=== PATIENT | female | born 2000 | race Caucasian/White ===

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

== ENCOUNTER 2019-05-24 08:00 | Outpatient (CLI) | payer MEDICAID, OTHER | END 2019-05-24 23:59 | disposition home or self-care (01) | LOC: LAB.R 08:00 | PROVIDERS: ATTEND Family Medicine | DX: R35.0 Frequency of micturition (principal) | CPT/HCPCS: 87077; 87086; 87181 ==

== ENCOUNTER 2019-07-16 01:06 | Outpatient (CLI) | payer OTHER | END 2019-07-16 01:07 | disposition critical access hospital (66) | LOC: EMS 01:06 | PROVIDERS: ATTEND Surgery | DX: T50.992A Poisoning by other drugs, medicaments and biological substances, intentional self-harm, initial encounter (principal); R40.20 Unspecified coma; R09.89 Other specified symptoms and signs involving the circulatory and respiratory systems | CPT/HCPCS: A0425; A0427 ==

== ENCOUNTER 2019-07-16 01:16 | Emergency (ER) | payer OTHER ==
--- NOTE | 2019-07-16 01:34 | ED Physician Documentation ---
PD HPI OVERDOSE - Stated complaint Stated Complaint: OD - Chief complaint Chief Complaint: MHE - History obtained from History obtained from: Patient, EMS - History of Present Illness Timing - onset: Last night Subtance(s) ingested: Single Associated symptoms: Resp depression, Unresponsive Contributing factors: No: Depresssed, Suicidal Pain level now: 0 Treatment INTERVENTIONAL NURSE: Narcan Recently seen: Not recently seen - Additional information Additional information: BIBA. Patient was at friend's house earlier tonight where she took two tablets of 30mg Percocet (per medic report; patient confirms this on my HPI). She tells me she took these for the euphoric effect and has/had no suicidal thoughts or intent. She then went home. Boyfriend subsequently came home and called 911 due to patient being unresponsive. Medics found patient unconscious and with agonal respirations, given Narcan 0.4mg IV and rapidly became AAOx3, remains AAOx3 on arrival to ED. Review of Systems Cardiac: reports: Reviewed and negative Respiratory: reports: Reviewed and negative GI: reports: Reviewed and negative Neurologic: reports: Unresponsive. denies: Headache, Head injury Psychiatric: denies: Depressed, Suicidal PD PAST MEDICAL HISTORY - Past Medical History Past Medical History: No - Past Surgical History Past Surgical History: No - Present Medications Home Medications: Ambulatory Orders Medication Instructions Recorded Confirmed Doxycycline Hyclate 09/25/17 Etonogestrel [Nexplanon] 09/25/17 Ibuprofen 800 mg PO TID 09/25/17 09/25/17 - Allergies Allergies/Adverse Reactions: Allergies Allergy/AdvReac Type Severity Reaction Status Date / Time No Known Drug Allergies Allergy Verified 09/25/17 09:40 - Living Situation Living Arrangement: reports: At home - Social History Does the pt smoke?: Yes Smoking Status: Current every day smoker Does the pt drink ETOH?: Yes Does the pt have substance abuse?: No - Immunizations Immunizations are current?: No PD ED PE NORMAL - Vitals Vital signs reviewed: Yes - General General: Alert and oriented X 3, No acute distress, Well developed/nourished - HEENT HEENT: Atraumatic, PERRL, EOMI, Moist mucous membranes - Cardiac Cardiac: RRR, No murmur - Respiratory Respiratory: No respiratory distress, Clear bilaterally - Abdomen Abdomen: Soft, Non tender - Derm Derm: Normal color, Warm and dry - Neuro Neuro: Alert and oriented X 3, furnace mason 2-12 intact, No motor deficit, No sensory deficit, Normal speech Eye Opening: Spontaneous Motor: Obeys Commands Verbal: Oriented GCS Score: 15 - Psych Psych: Normal mood, Normal affect Results - Vitals Vitals: Vital Signs - 24 hr 07/16/19 07/16/19 07/16/19 01:21 01:29 01:52 Temperature 37.3 C Heart Rate 118 H 115 H 115 H Respiratory 13 17 Rate Blood Pressure 124/82 H 107/69 O2 Saturation 98 99 07/16/19 07/16/19 07/16/19 02:40 03:54 04:37 Temperature Heart Rate 110 H 96 100 Respiratory 17 17 17 Rate Blood Pressure 114/64 105/74 106/61 O2 Saturation 98 98 96 07/16/19 07/16/19 07/16/19 04:40 05:33 06:27 Temperature 36.9 C Heart Rate 105 H 99 97 Respiratory 17 17 Rate Blood Pressure 106/73 99/54 L O2 Saturation 96 98 Oxygen O2 Source Room air - Labs Labs: Laboratory Tests 07/16/19 07/16/19 07/16/19 01:41 01:41 02:30 WBC 23.0 H RBC 4.35 Hgb 14.4 Hct 42.9 MCV 98.6 MCH 33.1 H MCHC 33.6 RDW 12.5 Plt Count 298 MPV 8.5 Neut # (Auto) Not Reportable Lymph # (Auto) Not Reportable [place] # (Auto) Not Reportable Eos # (Auto) Not Reportable Baso # (Auto) Not Reportable Absolute Nucleated RBC Not Reportable Total Counted 100 Band Neuts % (Manual) 4 Abnorm Lymph % (Manual) 0 Nucleated RBC % Not Reportable Neutrophils # (Manual) 17.7 H Lymphocytes # (Manual) 3.9 H Monocytes # (Manual) 1.4 H Eosinophils # (Manual) 0.0 Basophils # (Manual) 0.0 Differential Comment MANUAL DIFFERENTIAL Platelet Estimate NORMAL (130-450,000) RBC Morph Micro Appear NORMAL APPEARANCE Sodium 137 Potassium 3.5 Chloride 103 Carbon Dioxide 22 Anion Gap 12.0 BUN 13 Creatinine 0.8 Estimated GFR (MDRD) 91 Glucose 159 H Calcium 8.7 Total Bilirubin 0.6 AST 59 H ALT 31 Alkaline Phosphatase 76 Total Protein 6.9 Albumin 4.1 Globulin 2.8 Albumin/Globulin Ratio 1.5 Lipase 23 Ur Specific [place] Urine HCG, Qual Salicylates < 6.0 Urine Opiates Screen NEGATIVE Ur Oxycodone Screen NEGATIVE Urine Methadone Screen NEGATIVE Ur Propoxyphene Screen NEGATIVE Acetaminophen < 10 L Ur Barbiturates Screen NEGATIVE Ur Tricyclics Screen NEGATIVE Ur Phencyclidine Scrn NEGATIVE Ur Amphetamine Screen NEGATIVE U Methamphetamines Scrn NEGATIVE U Benzodiazepines Scrn NEGATIVE Urine Cocaine Screen POSITIVE H U Cannabinoids Screen NEGATIVE Ethyl Alcohol < 5.0 07/16/19 07/16/19 02:30 05:48 WBC RBC Hgb Hct MCV MCH MCHC RDW Plt Count MPV Neut # (Auto) Lymph # (Auto) [place] # (Auto) Eos # (Auto) Baso # (Auto) Absolute Nucleated RBC Total Counted Band Neuts % (Manual) Abnorm Lymph % (Manual) Nucleated RBC % Neutrophils # (Manual) Lymphocytes # (Manual) Monocytes # (Manual) Eosinophils # (Manual) Basophils # (Manual) Differential Comment Platelet Estimate RBC Morph Micro Appear Sodium Potassium Chloride Carbon Dioxide Anion Gap BUN Creatinine Estimated GFR (MDRD) Glucose Calcium Total Bilirubin AST ALT Alkaline Phosphatase Total Protein Albumin Globulin Albumin/Globulin Ratio Lipase Ur Specific [place] >=1.030 H Urine HCG, Qual NEGATIVE Salicylates Urine Opiates Screen Ur Oxycodone Screen Urine Methadone Screen Ur Propoxyphene Screen Acetaminophen < 10 L Ur Barbiturates Screen Ur Tricyclics Screen Ur Phencyclidine Scrn Ur Amphetamine Screen U Methamphetamines Scrn U Benzodiazepines Scrn Urine Cocaine Screen U Cannabinoids Screen Ethyl Alcohol PD MEDICAL DECISION MAKING - ED course Complexity details: reviewed results, re-evaluated patient, considered differential, d/w patient ED course: Remained asymptomatic and stable vital signs during ED stay. She was easily awoken to verbal stimulus during entire ED stay. Reevaluated in the morning and repeat acetaminophen level remains undetectable. Departure - Departure Disposition: 01 Home, Self Care Clinical Impression: Medication overdose, Opiate misuse Condition: Good Instructions: ED Overdose Opiate Follow-Up: Mary Houser ARNP [Primary Care Provider] - Discharge Date/Time: 07/16/19 06:34
[2019-07-16 01:48] LABS: BASOPHILS % (AUTO) 0.6 %; EOSINOPHILS % (AUTO) 0.7 %; HGB - HEMOGLOBIN 14.4 g/dL (12.0-16.0); MEAN CORPUSCULAR HEMOGLOBIN 33.1 pg (27.0-31.0); MEAN CORPUSCULAR HGB CONC 33.6 g/dL (32.0-36.0); MEAN CORPUSCULAR VOLUME 98.6 fL (81.0-99.0); MEAN PLATELET VOLUME 8.5 fL (7.9-10.8); MONOCYTES % (AUTO) 7.2 %; NEUTROPHILS % (AUTO) 77.5 %; PLT - PLATELET COUNT 298 10^3/uL (130-450); RED BLOOD COUNT 4.35 10^6/uL (4.20-5.40); RED CELL DISTRIBUTION WIDTH 12.5 % (12.0-15.0)
[2019-07-16 02:02] LABS: ABNORMAL LYMPHS % (MANUAL) 0 %
[2019-07-16 02:03] LABS: ACETAMINOPHEN < 10 ug/mL (10-30); ALBUMIN 4.1 g/dL (3.2-5.5); ALBUMIN/GLOBULIN RATIO 1.5 (1.0-2.2); ALKALINE PHOSPHATASE 76 IU/L (42-121); ALT ALANINE AMINOTRANSFERASE 31 IU/L (10-60); AST ASPARTATE AMINOTRANSFERASE 59 IU/L (10-42); BILIRUBIN,TOTAL 0.6 mg/dL (0.2-1.0); BUN - BLOOD UREA NITROGEN 13 mg/dL (6-20); CALCIUM 8.7 mg/dL (8.5-10.3); CARBON DIOXIDE - CO2 22 mmol/L (21-32); CHLORIDE 103 mmol/L (101-111); CREATININE 0.8 mg/dL (0.4-1.0); GFR - MDRD 91 (>89); GLUCOSE 159 mg/dL (70-100); LIPASE 23 U/L (22-51); SALICYLATE < 6.0 mg/dL; SODIUM 137 mmol/L (135-145); TOTAL PROTEIN 6.9 g/dL (6.7-8.2)
[2019-07-16 02:20] LABS: BAND NEUTROPHILS % (MANUAL) 4 %; DIFFERENTIAL COMMENT MANUAL DIFFERENTIAL; LYMPHOCYTES # (MANUAL) 3.9 10^3/uL (1.5-3.5); LYMPHOCYTES % (MANUAL) 17 %; MONOCYTES # (MANUAL) 1.4 10^3/uL (0.0-1.0); PLATELET ESTIMATE, MANUAL NORMAL (130-450,000) (NORMAL); RBC MORPHOLOGY (MULTIPLE) NORMAL APPEARANCE (NORMAL)
[2019-07-16 02:46] LABS: MUDS CUTOFF CONCENTRATIONS CUTOFF CONC BELOW:
[2019-07-16 02:50] LABS: HCG UR QUAL NEGATIVE
[2019-07-16 02:58] LABS: AMPHETAMINE SCREEN,URINE NEGATIVE (NEGATIVE); BENZODIAZEPINES SCREEN, URINE NEGATIVE (NEGATIVE); COCAINE SCREEN URINE POSITIVE (NEGATIVE); METHADONE SCREEN, URINE NEGATIVE (NEGATIVE); METHAMPHETAMINES SCREEN, URINE NEGATIVE (NEGATIVE); OPIATE SCREEN, URINE NEGATIVE (NEGATIVE); OXYCODONE SCREEN, URINE NEGATIVE (NEGATIVE); PROPOXYPHENE SCREEN, URINE NEGATIVE (NEGATIVE); TRICYCLIC ANTIDEPRESSANT,URINE NEGATIVE (NEGATIVE)
[2019-07-16 06:27] VITALS: BP 99/54
== END 2019-07-16 06:34 | disposition home or self-care (01) ==
LOC: EDUNIT# → ED 01:16
DX: T40.2X2A Poisoning by other opioids, intentional self-harm, initial encounter (principal); R40.20 Unspecified coma; Y92.009 Unspecified place in unspecified non-institutional (private) residence as the place of occurrence of the external cause; F17.200 Nicotine dependence, unspecified, uncomplicated
CPT/HCPCS: 36415; 80053; 80306; 80307; 80320; 80329; 81025; 83690; 85025; 99284

== ENCOUNTER 2020-02-12 08:00 | Outpatient (CLI) | payer BC, OTHER ==
[2020-02-12 16:34] LABS: MUDS CUTOFF CONCENTRATIONS CUTOFF CONC BELOW:
[2020-02-12 17:09] LABS: AMPHETAMINE SCREEN,URINE NEGATIVE (NEGATIVE); BENZODIAZEPINES SCREEN, URINE NEGATIVE (NEGATIVE); COCAINE SCREEN URINE NEGATIVE (NEGATIVE); METHADONE SCREEN, URINE NEGATIVE (NEGATIVE); METHAMPHETAMINES SCREEN, URINE NEGATIVE (NEGATIVE); OPIATE SCREEN, URINE NEGATIVE (NEGATIVE); OXYCODONE SCREEN, URINE NEGATIVE (NEGATIVE); PROPOXYPHENE SCREEN, URINE NEGATIVE (NEGATIVE); TRICYCLIC ANTIDEPRESSANT,URINE NEGATIVE (NEGATIVE)
[2020-02-12 19:33] LABS: TRICHOMONAS VAGINALIS DNA NEGATIVE (NEGATIVE)
== END 2020-02-12 23:59 | disposition home or self-care (01) ==
LOC: LAB.R 08:00
PROVIDERS: ATTEND Obstetrics & Gynecology
DX: Z36.89 Encounter for other specified antenatal screening (principal)
CPT/HCPCS: 80306; 87491; 87591; 87661

== ENCOUNTER 2020-02-19 15:01 | Outpatient (CLI) | payer BC, OTHER ==
--- NOTE | 2020-02-19 17:33 | Ultrasound Report ---
Reason: POSITIVE TEST, DATING Procedure Date: 02/19/2020 Accession Number: [id number] / [id number] Procedure: US - OB First Trimester CPT Code: Addended Final Report FULL RESULT: EXAM: COMPLETE OBSTETRICAL ULTRASOUND EXAM DATE: 02/19/2020 04:25 PM. CLINICAL HISTORY: Positive test. Dating. COMPARISON: None. TECHNIQUE: Real-time sonographic evaluation of the fetus performed by the sales operations coordinator. Multiple sales representative supervisor static images were saved for review. DATING: Established EGA 14 weeks 2 days with ADELA 08/17/2020 based on LMP. EGA 14 weeks 2 days with ADELA 08/17/2020 based on the current ultrasound. GENERAL EVALUATION Vences . Cardiac activity: 173 bpm. movement: Visualized. Presentation: Cephalic. [place]-rump length: 84 mm, 14 weeks 2 days gestational age. Placenta: Posterior position. Placenta previa. Amniotic fluid: Subjectively normal. BIOMETRY Bi-Parietal Diameter (BPD): 2.6 cm, 14 weeks 3 days. Head Circumference (HC): 9.8 cm, 14 weeks 4 days. Abdominal Circumference (AC): 7.9 cm, 14 weeks 2 days. Femur Length (FL): 1.3 cm, 13 weeks 6 days. MATERNAL STRUCTURES Uterus: Unremarkable. Cervix: Long and closed. Transabdominal length 4 cm. Right ovary/adnexa: Unremarkable. Left ovary/adnexa: Unremarkable. Free fluid: None. IMPRESSION: 1. Vences live intrauterine with gestational age 14 weeks 2 days based on crown-rump length. 2. Biometric dating is within expected limits for assigned dating. Note: Suggest complete anatomic survey at 20-22 weeks gestational age. [facility] ADDENDUM: 02/19/20 18:12 3. Posterior placenta previa noted.
== END 2020-02-19 15:02 | disposition home or self-care (01) ==
LOC: DI 15:01
PROVIDERS: ATTEND Nurse Practitioner Obstetrics & Gynecology
DX: Z32.01 Encounter for pregnancy test, result positive (principal)
CPT/HCPCS: 76801

== ENCOUNTER 2020-03-07 08:00 | Outpatient (CLI) | payer BC, OTHER ==
[2020-03-07 13:28] LABS: BASOPHILS # (AUTO) 0.1 10^3/uL (0.0-0.1); BASOPHILS % (AUTO) 0.6 %; EOSINOPHILS # (AUTO) 0.2 10^3/uL (0.0-0.7); EOSINOPHILS % (AUTO) 2.1 %; HGB - HEMOGLOBIN 12.6 g/dL (12.0-16.0); LYMPHOCYTES # (AUTO) 2.1 10^3/uL (1.5-3.5); LYMPHOCYTES % (AUTO) 19.3 %; MEAN CORPUSCULAR HEMOGLOBIN 32.5 pg (27.0-31.0); MEAN CORPUSCULAR HGB CONC 34.7 g/dL (32.0-36.0); MEAN CORPUSCULAR VOLUME 93.6 fL (81.0-99.0); MEAN PLATELET VOLUME 9.4 fL (7.9-10.8); MONOCYTES # (AUTO) 0.8 10^3/uL (0.0-1.0); MONOCYTES % (AUTO) 7.2 %; NEUTROPHILS # (AUTO) 7.5 10^3/uL (1.5-6.6); NEUTROPHILS % (AUTO) 69.9 %; PLT - PLATELET COUNT 338 10^3/uL (130-450); RED BLOOD COUNT 3.88 10^6/uL (4.20-5.40); RED CELL DISTRIBUTION WIDTH 13.1 % (12.0-15.0); WHITE BLOOD COUNT 10.7 x10^3/uL (4.8-10.8)
[2020-03-08 10:24] LABS: HEPATITIS C ANTIBODY NON-REACTIVE (NON-REACTIVE)
[2020-03-08 12:34] LABS: HIV AG/AB 4TH GEN NON-REACTIVE (NON-REACTIVE)
[2020-03-08 15:00] LABS: HEPATITIS B SURFACE ANTIGEN NON-REACTIVE (NON-REACTIVE)
== END 2020-03-07 23:59 | disposition home or self-care (01) ==
LOC: LAB.WCP 08:00
PROVIDERS: ATTEND Obstetrics & Gynecology
DX: Z36.89 Encounter for other specified antenatal screening (principal)
CPT/HCPCS: 36415; 81599; 85025; 86592; 86762; 86803; 86850; 86900; 86901; 87340; 87389

== ENCOUNTER 2020-03-27 14:08 | Outpatient (CLI) | payer BC, MEDICAID ==
--- NOTE | 2020-03-28 15:08 | Ultrasound Report ---
Reason: SUPER OF NORMAL FIRST Procedure Date: 03/27/2020 Accession Number: [id number] / [id number] Procedure: US - OB Detailed Eval CPT Code: Final Report FULL RESULT: EXAM: COMPLETE OBSTETRICAL ULTRASOUND EXAM DATE: 03/27/2020 03:55 PM. CLINICAL HISTORY: anatomic survey. COMPARISON: OB FIRST TRIMESTER 02/19/2020 4:12 PM. TECHNIQUE: Real-time sonographic evaluation of the fetus performed by the ceo and founder. Multiple claims service representative static images were saved for review. DATING: Established EGA 19 weeks 4 days with ADELA 08/17/2020 based on LMP. EGA 19 weeks 4 days with ADELA 08/17/2020 based on prior ultrasound dated 02/19/2020. EGA 18 weeks 5 days with ADELA 08/23/2020 based on the current ultrasound. GENERAL EVALUATION Vences . Cardiac activity: 150 bpm. movement: Visualized. Presentation: Variable. Placenta: Posterior position. Possible low lying placenta with inferior margin less than 2 cm from the internal os on initial images. With further bladder filling, the inferior margin of the placenta appears to be 2.7 cm from the internal loss. Umbilical cord: 3 vessel cord. Central placental cord origin. Amniotic fluid: Subjectively normal. MVP 3.6 cm. VERITO 11.9 cm. BIOMETRY Bi-Parietal Diameter (BPD): 4.3 cm, 19 weeks 0 days. Head Circumference (HC): 16.3 cm, 19 weeks 0 days. Abdominal Circumference (AC): 13.3 cm, 18 weeks 6 days. Femur Length (FL): 2.9 cm, 18 weeks 5 days. Estimated Weight: 260 g, 12 percentile for 19 weeks 4 days. ANATOMY The intracranial structures, profile, face/nose/lips, spine, 4 chamber heart and outflow tracts, stomach, abdominal wall and cord insertion, diaphragm, kidneys, bladder, upper extremities, and portions of the lower extremities were visualized and demonstrate no abnormality. The bilateral leg-foot relationship is not well visualized due to position and early gestational age. The nuchal was not well visualized. MATERNAL STRUCTURES Uterus: Unremarkable. Cervix: Long and closed. Transabdominal length 6.8 cm. Right ovary/adnexa: Unremarkable. Left ovary/adnexa: Unremarkable. Free fluid: None. IMPRESSION: 1. Vences live intrauterine with gestational age 19 weeks 4 days based on LMP. 2. Estimated weight is at the 12th percentile for assigned dating. 3. The bilateral leg-foot relationship was not well visualized due to early gestational age and position. Recommend follow-up limited OB ultrasound to complete anatomic survey. 4. The visualized portions of anatomy are otherwise normal. No anatomic abnormalities are detected at this time. 5. Posterior placenta, possibly low lying. The inferior margin of the placenta appears to be within 2 cm of the internal os on the initial images, although with greater bladder filling the margin appears to be located more than 2 cm from the internal os. Recommend follow-up transvaginal ultrasound at or before 32 weeks to assess for resolution and to exclude vasa previa. [facility]
== END 2020-03-27 14:09 | disposition home or self-care (01) ==
LOC: DI 14:08
PROVIDERS: ATTEND Advanced Practice Midwife
DX: Z34.02 Encounter for supervision of normal first pregnancy, second trimester (principal)
CPT/HCPCS: 76811

== ENCOUNTER 2020-05-27 12:51 | Outpatient (CLI) | payer OTHER, MEDICAID ==
--- NOTE | 2020-05-27 15:42 | Ultrasound Report ---
PROCEDURE: OB F/U or Repeat INDICATIONS: PLACENTA PREVIA, FIRST TRIMESTER OUTSIDE/PRIOR DATING DATA: Last menstrual period (LMP): 11/11/2019. LMP-based estimated date of delivery (ADELA): 08/17/2020. First dating scan (date and location): 02/19/2020. Estimated date of delivery (ADELA) from first dating scan: 08/17/2020. TECHNIQUE: Real-time scanning was performed of the fetus, with image documentation and biometric measurements. Endovaginal scanning: Not performed COMPARISON: OB Ultrasound, 03/27/2020, 02/19/2020. FINDINGS: General: A single living intrauterine gestation is present. Presentation: Vertex Placenta: Placental position is posterior, without previa. The lower margin of placenta is 6.5 cm f rom the internal os. Amniotic fluid index: 13.3 cm, 34.5% for gestational age. heart rate: 132 beats per minute. Maternal cervical canal: closed, measuring 4 cm long; normal length is 2.5 cm or more. biometrics: Not performed. IMPRESSION: 1. A single living intrauterine is redemonstrated. 2. Low-lying placenta is resolved. Placenta is posterior. The lower margin of placenta is 6.5 cm from the internal os. Reviewed by: Marta Glover MD on 05/27/2020 3:41 PM PDT Approved by: Marta Glover MD on 05/27/2020 3:41 PM PDT Station ID: [id number]
== END 2020-05-27 12:52 | disposition home or self-care (01) ==
LOC: DI 12:51
PROVIDERS: ATTEND Advanced Practice Midwife
DX: O44.11 Complete placenta previa with hemorrhage, first trimester (principal); Z3A.00 Weeks of gestation of pregnancy not specified
CPT/HCPCS: 76816

== ENCOUNTER 2020-07-22 08:00 | Outpatient (CLI) | payer OTHER, MEDICAID | END 2020-07-22 23:59 | disposition home or self-care (01) | LOC: LAB.R 08:00 | PROVIDERS: ATTEND Advanced Practice Midwife | DX: Z34.00 Encounter for supervision of normal first pregnancy, unspecified trimester (principal); Z36.85 Encounter for antenatal screening for Streptococcus B | CPT/HCPCS: 81599; 87491; 87591; 87797 ==

== ENCOUNTER 2020-07-31 08:00 | Outpatient (CLI) | payer OTHER, MEDICAID | END 2020-07-31 23:59 | disposition home or self-care (01) | LOC: LAB.R 08:00 | PROVIDERS: ATTEND Nurse Practitioner Obstetrics & Gynecology | DX: Z36.85 Encounter for antenatal screening for Streptococcus B (principal) | CPT/HCPCS: 87797 ==

== ENCOUNTER 2020-08-24 08:06 | Inpatient (IN) | payer OTHER, MEDICAID ==
[2020-08-24] MEDS ORDERED: LIDOCAINE-MPF 1% 30 ML VIAL ID PRN (09:14)
[2020-08-24] MEDS ORDERED: CARBOPROST TROMETHAMINE 250 MCG/ML AMP IM PRN (09:14)
[2020-08-24] MEDS ORDERED: ONDANSETRON 4 MG/2 ML VIAL IVP PRN (09:14)
[2020-08-24] MEDS ORDERED: miSOPROStoL 200 MCG TABLET BC PRN (09:14)
[2020-08-24] MEDS ORDERED: fentaNYL 100 MCG/2 ML VIAL IVP PRN (09:14)
[2020-08-24] MEDS ORDERED: METHYLERGONOVINE 0.2 MG/ML VIAL IM PRN (09:14)
[2020-08-24] MEDS ORDERED: OXYTOCIN/SODIUM CHLORIDE 500 ML IV PRN (09:14)
[2020-08-24] MEDS ORDERED: OXYTOCIN 10 UNIT/ML VIAL IM PRN (09:14)
[2020-08-24] MEDS ORDERED: TRANEXAMIC ACID 1,000 MG in SODIUM CHLORIDE 0.9% 100ML 100 ML IV PRN (09:14)
[2020-08-24] MEDS ORDERED: SODIUM CHLORIDE FLUSH 0.9% 10 ML SYRINGE IVP PRN (09:14)
--- NOTE | 2020-08-24 09:14 | HISTORY & PHYSICAL EXAMINATION ---
Admit History - Visit Reason Visit Reason: Other (Pre-Induction cervical ripening) - : 1 Parity: 0 Premature: 0 Ectopic: 0 : 0 Care: positive: None ([facility]) Risk/History: positive: None Complications This : positive: None Smoking Status: Current every day smoker - Mother's Labs Mother's Blood Type: positive: O Mother's RH: positive: Positive GBS: positive: Group B Step Negative Rubella Status: positive: Immune - Other Maternal History Other Maternal History: -20yo at 41.0wks gestation who presents to Labor and Delivery for pre- induction cervical ripening -Reports movement -Denies ctx/VB/LOF - care with [facility] which has been adequate - Complications *None -Dating Criteria *Initial U/S:14.2wk gestation c/w LMP -OB Hx *G1: current -Medications * vitamin-daily -Allergies *NKDA -Medical History *Depression/Anxiety *Oral cold sores -Surgical History *None -Family History *Non contributory -Social History *Smoking 1/4pk/day *History of opioid drug use prior to . Negative UDS in pnc - Labs, Immunizations, and Findings *Initial U/S:14.2wk gestation c/w LMP. HR 173. Posterior Placenta Previa noted. F/U at 20wk FAS Hx heroin use prior to preg/ UDS neg O pos/Rubella immune Gentic testing: Declines FAS: 03/27 at 19.4wks. EFW 12%. Some anatomy not well visualized. Placenta posterior- possibly low lying within 2cm of os. Recommended follow up at 32weeks or sooner to rule out previa. 3VC. VERITO wnl. F/UFAS: No previa noted. Posterior placenta. VERITO wnl. EFW 16%. 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 FOB Jon. "wait and see". GIRL: Patti. pp contraception: Mirena PAP: will accept -SVE : closed/80%/-1/midposition/moderate -Vertex by Cem's -EFW by cem's- 7# -FHTs as above -Assessment *20yo at 41.0wks gestation who presents for pre-induction cervical r ipening *Dumont Score 7- requires cervical ripening * Heart Tones- Category I, with periods of minimal variability -Plan *Admit to OBS(until active labor, SROM, AROM, epidural, or pitocin) *Cervical ripening with Misoprostol *Monitoring- Continuous *Comfort measures available- position changes, whirlpool tub, fentanyl, and epidural per maternal preference *Diet/Activity- per maternal preference *Anticipate Meds/Allgy - Allergies Allergies/Adverse Reactions: Allergies Allergy/AdvReac Type Severity Reaction Status Date / Time No Known Drug Allergies Allergy Verified 09/25/17 09:40 Review of Systems - Musculoskeletal Musculoskeletal: reports: Back pain - All Other Systems All Other Systems: reports: Reviewed and negative Physical - Abdominal Exam Contraction Frequency (min/apart): none felt Uterine Resting Tone: positive: Soft - Monitoring Heart Rate Baseline: 130 Strip Review: positive: Category I - Vaginal Exam Membranes: positive: Membranes intact Dilation (in cm): clsd Effacement (%): 80 Station: positive: -1 Cervical Position: positive: Midposition Plan for Labor - Plan For Labor I expect patient to be DC'd or transferred within 96 hours.: Yes
[2020-08-24] MEDS: miSOPROStoL 100 MCG TABLET BC SCH ×4 (09:53→19:00)
[2020-08-24 09:54] LABS: BASOPHILS # (AUTO) 0.1 10^3/uL (0.0-0.1); BASOPHILS % (AUTO) 0.4 %; EOSINOPHILS # (AUTO) 0.3 10^3/uL (0.0-0.7); EOSINOPHILS % (AUTO) 2.4 %; HGB - HEMOGLOBIN 13.1 g/dL (12.0-16.0); LYMPHOCYTES # (AUTO) 2.5 10^3/uL (1.5-3.5); LYMPHOCYTES % (AUTO) 21.2 %; MEAN CORPUSCULAR HEMOGLOBIN 32.3 pg (27.0-31.0); MEAN CORPUSCULAR HGB CONC 33.9 g/dL (32.0-36.0); MEAN CORPUSCULAR VOLUME 95.3 fL (81.0-99.0); MEAN PLATELET VOLUME 9.7 fL (7.9-10.8); MONOCYTES % (AUTO) 8.5 %; NEUTROPHILS # (AUTO) 7.8 10^3/uL (1.5-6.6); NEUTROPHILS % (AUTO) 66.4 %; PLT - PLATELET COUNT 262 10^3/uL (130-450); RED BLOOD COUNT 4.06 10^6/uL (4.20-5.40); RED CELL DISTRIBUTION WIDTH 12.7 % (12.0-15.0); WHITE BLOOD COUNT 11.8 x10^3/uL (4.8-10.8)
[2020-08-24 12:12] LABS: MUDS CUTOFF CONCENTRATIONS CUTOFF CONC BELOW:
[2020-08-24 12:29] LABS: AMPHETAMINE SCREEN,URINE NEGATIVE (NEGATIVE); BENZODIAZEPINES SCREEN, URINE NEGATIVE (NEGATIVE); COCAINE SCREEN URINE NEGATIVE (NEGATIVE); METHADONE SCREEN, URINE NEGATIVE (NEGATIVE); METHAMPHETAMINES SCREEN, URINE NEGATIVE (NEGATIVE); OPIATE SCREEN, URINE NEGATIVE (NEGATIVE); OXYCODONE SCREEN, URINE NEGATIVE (NEGATIVE); PROPOXYPHENE SCREEN, URINE NEGATIVE (NEGATIVE); TRICYCLIC ANTIDEPRESSANT,URINE NEGATIVE (NEGATIVE)
[2020-08-24] MEDS: LACTATED RINGERS 1,000 ML IV SCH (13:57)
[2020-08-24] MEDS: SODIUM CHLORIDE FLUSH 0.9% 10 ML SYRINGE IVP SCH ×2 (14:57→23:57)
[2020-08-24] MEDS ORDERED: polyethylene glycoL 3350 17 GM PACKET PO PRN (19:38)
[2020-08-25] MEDS ORDERED: ROPIVACAINE 0.2% 200 MG/100 ML BAG EP ONE (01:04)
[2020-08-25] MEDS ORDERED: diphenhydrAMINE INJ 50 MG/ML VIAL IVP PRN (01:48)
[2020-08-25] MEDS ORDERED: ROPIVACAINE 0.2% 200 MG/100 ML BAG EP PRN (01:48)
[2020-08-25] MEDS ORDERED: NALOXONE 0.4 MG/ML VIAL IVP PRN (01:48)
[2020-08-25] MEDS ORDERED: METOCLOPRAMIDE 10 MG/2 ML VIAL IVP PRN (01:48)
[2020-08-25] MEDS ORDERED: NALBUPHINE 10 MG/ML AMP IVP PRN (01:48)
[2020-08-25] MEDS ORDERED: ONDANSETRON 4 MG/2 ML VIAL IVP PRN (01:48)
[2020-08-25] MEDS ORDERED: ePHEDrine 50 MG/ML VIAL IVP PRN (01:48)
--- NOTE | 2020-08-25 01:51 | ANESTHESIA ---
Pre-Anesthesia VS, & Labs - Diagnosis term labor, IUP - Procedure epidural for Vital Signs: Temp Pulse Resp BP Pulse Ox 37.0 C 08/24/20 08:44 Height: 5 ft 4 in Weight (kg): 86.545 kg Body Mass Index: 32.7 BMI Classification: Obese - NPO Last Food Intake: full dinner@1900 - Is Patient ?: Yes - Lab Results Current Lab Results: Laboratory Tests 08/24/20 12:05: Urine Opiates Screen NEGATIVE, Ur Oxycodone Screen NEGATIVE, Urine Methadone Screen NEGATIVE, Ur Propoxyphene Screen NEGATIVE, Ur Barbiturates Screen NEGATIVE, Ur Tricyclics Screen NEGATIVE, Ur Phencyclidine Scrn NEGATIVE, Ur Amphetamine Screen NEGATIVE, U Methamphetamines Scrn NEGATIVE, U Benzodiazepines Scrn NEGATIVE, Urine Cocaine Screen NEGATIVE, U Cannabinoids Screen NEGATIVE 08/24/20 09:43: Blood Type O POSITIVE, Antibody Screen NEGATIVE 08/24/20 09:43: WBC 11.8 H, RBC 4.06 L, Hgb 13.1, Hct 38.7, MCV 95.3, MCH 32.3 H , MCHC 33.9, RDW 12.7, Plt Count 262, MPV 9.7, Neut # (Auto) 7.8 H, Lymph # (Auto) 2.5, [place] # (Auto) 1.0, Eos # (Auto) 0.3, Baso # (Auto) 0.1, Absolute Nucleated RBC 0.00, Nucleated RBC % 0.0 Lab results reviewed: Yes Fish Bones: 08/24/20 09:43 Home Medications and Allergies Active Medications Acetaminophen (Tylenol) 650 mg PO Q6H PRN PRN Reason: Pain or Fever Carboprost Tromethamine (Hemabate) 250 mcg IM Q15M PRN PRN Reason: Step 4: Hemorrhage protocol Stop: 08/29/20 09:15 Docusate Sodium (Colace 100mg Capsule) 200 mg PO DAILY LATIA Fentanyl (Fentanyl) 50 mcg IVP Q1H PRN PRN Reason: PAIN Oxytocin/Sodium Chloride (Pitocin/Sodium Chloride) 500 mls @ 999 mls/hr IV PRN PRN; Protocol PRN Reason: POST- HEMORR PREVENTION Stop: 08/29/20 09:15 Tranexamic Acid 1,000 mg/ (Sodium Chloride) 110 mls @ 660 mls/hr IV .ONCE PRN PRN Reason: EBL >1200mL and within 3hr Stop: 08/29/20 09:15 Lactated Ringer's (Lr) 1,000 mls @ 100 mls/hr IV .Q10H [facility] Last Infusion: 08/25/20 01:20 Dose: 100 mls/hr Documented by: Lidocaine HCl (Xylocaine-Mpf 1% Vial) 30 ml ID .ONCE PRN PRN Reason: PERINEAL REPAIR Stop: 08/29/20 09:15 Methylergonovine Maleate (Methergine Inj) 0.2 mg IM .ONCE PRN PRN Reason: Step 2: Hemorrhage protocol Stop: 08/29/20 09:15 Misoprostol (Cytotec) 800 mcg BC .ONCE PRN PRN Reason: Step 3: Hemorrhage protocol Stop: 08/29/20 09:15 Misoprostol (Cytotec) 50 mcg BC Q4HR [facility] Last Admin: 08/24/20 19:00 Dose: 50 mcg Documented by: Ondansetron HCl (Zofran Inj) 4 mg IVP Q4HR PRN PRN Reason: Nausea / Vomiting Last Admin: 08/24/20 23:57 Dose: 4 mg Documented by: Oxytocin (Pitocin) 10 unit IM .ONCE PRN PRN Reason: Step one: If no IV access Stop: 08/29/20 09:15 Polyethylene Glycol (Miralax) 17 gm PO DAILY PRN PRN Reason: Bowel Protocol Last Admin: 08/24/20 20:18 Dose: 17 gm Documented by: Sodium Chloride (Normal Saline Flush 0.9%) 10 ml IVP 0100,0900,1700 [facility] Last Admin: 08/24/20 23:57 Dose: 10 ml Documented by: Sodium Chloride (Normal Saline Flush 0.9%) 10 ml IVP PRN PRN PRN Reason: NEEDED PER PROVIDER ORDERS Allergies/Adverse Reactions: Allergies Allergy/AdvReac Type Severity Reaction Status Date / Time No Known Drug Allergies Allergy Verified 09/25/17 09:40 Anes History & Medical History - Anesthetic History Anesthesia Complications: reports: No previous complications Family history of Anesthesia Complications: Denies Family history of Malignant Hyperthermia: Denies - Medical History Cardiovascular: reports: None Pulmonary: reports: None Gastrointestinal: reports: None Urinary: reports: None Neuro: reports: None Musculoskeletal: reports: None Endocrine/Autoimmune: reports: None Blood Disorders: reports: None Skin: reports: None Smoking Status: Current every day smoker Psychosocial: reports: Substance abuse (history of opioid abuse prior to ) History of Cancer?: No - Obstetrical History : 1 Parity: 0 Events: positive: None Complications: positive: None Exam General: Alert, Oriented x3, Cooperative Dental: WNL Mouth Openin Fingerbreadth Neck Mobility: Normal Mallampati classification: II Thyromental Distance: greater than 6 cm Respiratory: No respiratory distress Cardiovascular: Regular rate Neurological: Normal speech Mental/Cognitive Status: Alert/Oriented X3, Normal for patient Cognitive Status: Within normal limits Plan Anesthesia Type: Epidural Consent for Procedure(s) Verified and Reviewed: Yes Code Status: Attempt Resuscitation ASA classification: 2-Mild systemic disease Is this case an emergency?: No
[2020-08-25] MEDS ORDERED: TERBUTALINE 1 MG/ML VIAL SUBQ ONE (02:05)
[2020-08-25] MEDS: LACTATED RINGERS 1,000 ML IV SCH ×3 (02:25→13:05)
[2020-08-25] MEDS ORDERED: WITCH HAZEL/GLYCERIN 1 PAD TOP PRN (08:44)
[2020-08-25] MEDS ORDERED: HYDROCORTISONE 1% CREAM 28 GM TUBE PR PRN (08:44)
--- NOTE | 2020-08-25 08:54 | DELIVERY NOTE ---
Delivery Note - Labor Labor: positive: Spontaneous, Other (Induced with cervical ripening) - Delivery Method Delivery Method: positive: Spontaneous vaginal delivery - Presentation Presentation: positive: JAMES - right occiput anterior - Nuchal Cord Nuchal Cord: positive: Present (loose x1, reduced) - Anesthetic Anesthetic Type: - Amniotic Fluid Description Amniotic Fluid Description: positive: Clear - Laceration Laceration: positive: None - Delivery Outcome Delivery Outcome: positive: Livebirth - : positive: Placed in direct skin contact with mother, Bulb syringe, Stimulated, [place] used sex: positive: Female : 8 : 9 - Cord Cord: positive: 3 vessels - Placenta Placenta: positive: Intact, Spontaneous - Estimated Blood Loss Estimated Blood Loss (in cc): 100 - Post Delivery Events Post Delivery Events: positive: No post delivery events - Delivery Comments (Free Text/Narrative) Delivery Comments (Free Text/Narrative): Note: Labor: This 20 year old, , @41.0wks gestation presented @ 0800 for induction of labor for post dates. Cervix was closed/80%/-1 and vertex. FHR pattern demonstrated 130 baseline in a Category I pattern, with intermittent periods of minimal variability. Induced with three doses Misoprostol. Normal labor course. Epidural placed upon maternal request. SROM occurred @ 0238 and amount and color of fluid were noted to be moderate and clear. She progressed to c/c/0 at 0540, and allowed to labor down. She began pushing at 0707. Cat II strip noted with pushing, with variables and lates. : Normal of a 3335gm female , Sulma, on 08/25/2020 @ 0820. Nuchal loose x1, and reduced. The was placed on maternal abdomen, stimulated, dried and placed skin to skin. Apgars 8 at one minute and 9 at five minutes. The umbilical cord was allowed to stop pulsating at which time it was doubly clamped by CNM and cut by FOB. Pitocin administered via IV for hemostasis. Fundal massage and gentle cord traction applied for active third stage management. Cord blood was obtained. Placenta delivered spontaneously and intact at 0831. Three vessel cord. EBL 100mL. Fourth Stage: Uterine fundus firm and without excessive bleeding. The perineum, vagina, and cervix were inspected and found to be intact. initiated. Family bonding well. Both mother and baby are in stable condition.
[2020-08-25] MEDS: DOCUSATE SODIUM 100 MG CAPSULE PO SCH ×3 (11:17→23:45)
[2020-08-25] MEDS: IBUPROFEN 600 MG TABLET PO SCH ×4 (11:18→23:44)
[2020-08-25] MEDS: ACETAMINOPHEN 325 MG TABLET PO PRN ×3 (11:18→23:45)
[2020-08-25] MEDS: miSOPROStoL 100 MCG TABLET BC SCH ×4 (12:59→13:05)
[2020-08-25] MEDS: SODIUM CHLORIDE FLUSH 0.9% 10 ML SYRINGE IVP SCH ×2 (13:00→13:24)
[2020-08-26] MEDS: IBUPROFEN 600 MG TABLET PO SCH ×2 (06:11→13:46)
[2020-08-26] MEDS: ACETAMINOPHEN 325 MG TABLET PO PRN ×2 (06:11→13:47)
[2020-08-26] MEDS: miSOPROStoL 100 MCG TABLET BC SCH ×2 (06:37→15:24)
[2020-08-26] MEDS: SODIUM CHLORIDE FLUSH 0.9% 10 ML SYRINGE IVP SCH ×2 (06:38→15:21)
[2020-08-26] MEDS ORDERED: SERTRALINE 50 MG TABLET PO SCH (09:00)
--- NOTE | 2020-08-26 12:46 | PROVIDER PROGRESS NOTE ---
Subjective - Subjective Pt reports feeling: Improved Subjective: S: Lauren is resting in bed. Jon is attempting to reswaddle the baby. She reports as going well, although still learning. She reports her pain as well controlled with PO pain meds. She really desires to be discharged to boarder status so that she can go out and have a smoke. O: fundus firm lochia rubra-light perineum- approximated A: 20yo s/p on pp day 1 Perineum healing well Normal course P: Continue with routine pp care Evaluate for discharge home today Objective - Vital Signs/Intake & Output Vital Signs: Vital Signs x48h Temp Pulse Resp BP Pulse Ox 08/26/20 09:15 36.6 C 98 18 128/75 100 Intake & Output: Intake & Output 08/23/20 08/24/20 08/25/20 08/26/20 23:59 23:59 23:59 23:59 Intake Total 500 2108.333 550 Output Total 75 Balance 500 2033.333 550 - Lab Results Fish Bones: 08/24/20 09:43
--- NOTE | 2020-08-26 12:47 | DISCHARGE SUMMARY ---
Discharge Summary Discharge Date: 08/26/20 Condition at Discharge: Good Discharge Disposition: 01 Home, Self Care - HPI History of Present Illness: Admit Date 08/24/2020 Discharge Date 08/26/2020 Diagnosis on Admission: 1. A 20yo at 41.0 week intrauterine 2. Post Dates - IOL Diagnosis on Discharge 1. A 20yo s/p spontaneous vaginal delivery on 08/25/2020_ 2. Normal recovery Brief History: She is a patient at [facility] who presented on 08/24/2020 for pre-induction cervical ripening . Misoprostol was used for induction. Normal labor course. She spontaneously delivered a viable female infant named Sulma. Apgars were 8 and 9- and 1 and 5 minutes respectively. RKE794 mL. Perineum intact. She has been doing well in her course. She is ambulating and tolerating a regular diet. She is urinating without difficulty and her lochia is normal. Her pain is well controlled with oral medications. She will be discharged home today on day #1 without need for prescriptions. She intends to follow up with Midwifery at [facility] in 1, 3, and 6 weeks for routine visit. She has been given precautions to call if she has any worsening fevers, chills, abdominal pain, increased bleeding or foul smelling vaginal lochia. - ALLERGIES Allergies/Adverse Reactions: Allergies Allergy/AdvReac Type Severity Reaction Status Date / Time No Known Drug Allergies Allergy Verified 09/25/17 09:40 - LABS Result Diagrams: 08/24/20 09:43
--- NOTE | 2020-08-26 12:49 | Discharge Plan ---
Discharge Plan Problem Reviewed?: Yes Disposition: Home, Self Care Condition: Good Diet: Regular Activity Restrictions: No Restrictions Shower Restrictions: No Driving Restrictions: No Weight Bearing: Full Weight Plan of Treatment: Follow up at 1 and 6 weeks No Smoking: If you smoke, Please STOP! Call for help. Follow-up with: Sil Camejo ARNP [Provider Admit Priv/Credential] -
[2020-08-26 14:21] VITALS: BP 112/63
[2020-08-26] MEDS: LACTATED RINGERS 1,000 ML IV SCH (15:24)
--- NOTE | 2020-08-26 15:33 | Labor Flowsheet ---
Labor Flowsheet Datetime Report Generated by CPN: 08/26/2020 15:33 Datetime: 08/26/2020 14:02 VITAL SIGNS NBP Sys/[place]/Mean (mmHg): 112 : 63 : 76 Pulse: 88 Datetime: 08/25/2020 23:35 SpO2 (%): 99 Datetime: 08/25/2020 08:46 PAIN Pain Scale: 2 Pain Presence: Intermittent Pain Type: Dull Pain Location: Perineum Datetime: 08/25/2020 08:31 Stage of : Recovery Datetime: 08/25/2020 08:20 UTERINE ACTIVITY Monitor Mode: External Frequency (min): 1.5-3 Quality: Strong Pattern: Normal: <= 5 Contractions in 10 Minutes Resting Tone (Palpate): Relaxed Contraction Comments: Pushing contractions Comments: Unable to establish FHR baseline, but FHR appears to decrease when patient pushes Datetime: 08/25/2020 08:16 LaborFlag: Labor Datetime: 08/25/2020 08:00 ASSESSMENT A Monitor Mode: Telemetry FHR Baseline Rate : 145 Variability: Moderate 6-25 bpm Accelerations: None Decelerations: Variable Category: Category II Oxygen Method: Room Air Datetime: 08/25/2020 07:12 Patient Care Comments: 330ml UO Datetime: 08/25/2020 07:07 STAGE 2 Pushing: Coached on Pushing Pushing Position: Pushing with Contractions Pushing Progress: Pushing Effectively with Contractions Datetime: 08/25/2020 07:05 VAGINAL EXAM Dilatation (cm): 10.0 Effacement (%): 100 Station: 0 Exam by: Bashir CNM Datetime: 08/25/2020 07:02 COMMUNICATION Communication: Provider at Bedside Provider Notified (Name): Sibley CNM Datetime: 08/25/2020 07:00 Duration (sec): 30-100 Datetime: 08/25/2020 06:47 Pain Coping: Sleeping Pain Assessment Comments: "Everything is numb" Datetime: 08/25/2020 06:46 Temperature (C): 36.7 Datetime: 08/25/2020 06:45 Monitor Interventions for UA: [place] Adjusted Datetime: 08/25/2020 06:00 Patient Position/Activity: Semi-Fowlers Datetime: 08/25/2020 05:40 Vaginal Bleeding: Normal Show Cervix, Consistency: Soft Cervix, Position: Anterior Datetime: 08/25/2020 05:01 Monitor Interventions for FHR: Ultrasound Adjusted Datetime: 08/25/2020 04:42 Respirations: 16 Datetime: 08/25/2020 03:15 FHR Baseline Changes: Return to Previous Baseline Datetime: 08/25/2020 02:48 I/O Interventions: Perdomo Cath Inserted Datetime: 08/25/2020 02:38 Membrane Status: Ruptured Membranes Rupture Method: Spontaneous Amniotic Fluid Color: Clear Amniotic Fluid Amount: Small Amniotic Fluid Odor: Normal Datetime: 08/25/2020 01:56 PATIENT CARE IV/Blood Work: IV Bolus Started Datetime: 08/25/2020 01:54 Provider Reviewed Strip: No Notification Reason: Status Update; Status; Labor Status; Other Communication Comments: Called CNM to come to hospital re: prolonged deceleration following epidura l placement Datetime: 08/25/2020 01:32 Epidural Procedure Other: Single Dose Datetime: 08/25/2020 01:25 Epidural Procedure: Test Dose Datetime: 08/25/2020 01:19 PROCEDURE TIME OUT Procedure Type: 0120 ANESTHESIA Anesthesia Plans: Epidural Anesthesia Interview: E Epidural Positioning: Sitting Datetime: 08/25/2020 00:04 MEDICATIONS Antiemetics/Antacids: Zofran (mg) @ 4 Datetime: 08/24/2020 23:01 Comfort Measures: Hot Shower/Tub/Spa Datetime: 08/24/2020 21:38 Vaginal Exam Comments: unable to find cervix. Very uncomfortable for pt and had to stop before find ing cervix Datetime: 08/24/2020 21:09 Pain Relief Measures: Comfort Measures Datetime: 08/24/2020 19:24 MATERNAL ASSESSMENT Level of Consciousness: Alert Headache: Denies Breath Sounds, Left: Clear and Equal Breath Sounds, Right: Clear and Equal Nausea/Vomiting: Denies RUQ Epigastric Pain: Denies Datetime: 08/24/2020 14:57 Cervical Ripening Agents: Cytotec @ 50 Datetime: 08/24/2020 09:55 TEACHING Labor/Induction: Cervical Ripening Pain Management: IV Narcotics; Epidural; PRN Medications; Pain Scale/Goals; Comfort Measures Medications: Cervical Ripening
== END 2020-08-26 14:15 | disposition home or self-care (01) | DRG 807 ==
LOC: WFO 08:06 → FBP 08:10 → WFO 09:13 → FBP 09:14 → OBSVTOIN 08-25 01:38
PROVIDERS: ADMIT Advanced Practice Midwife; ATTEND Advanced Practice Midwife
PROC: 10E0XZZ Delivery of Products of Conception, External Approach (ICD-10-PCS; principal; 2020-08-25)
DX: O48.0 Post-term pregnancy (principal); Z37.0 Single live birth; O69.81X0 Labor and delivery complicated by cord around neck, without compression, not applicable or unspecified; Z3A.41 41 weeks gestation of pregnancy; O99.334 Smoking (tobacco) complicating childbirth; F17.210 Nicotine dependence, cigarettes, uncomplicated
CPT/HCPCS: 36415; 80306; 85025; 86850; 86900; 86901; 96374; A9270; J7120

== ENCOUNTER 2020-10-07 11:30 | Outpatient (CLI) | payer OTHER, MEDICAID ==
[2020-10-07 22:16] LABS: CANDIDA GROUP DNA NEGATIVE (NEGATIVE); CANDIDA KRUSEI DNA NEGATIVE (NEGATIVE); TRICHOMONAS VAGINALIS DNA NEGATIVE (NEGATIVE)
== END 2020-10-07 23:59 | disposition home or self-care (01) ==
LOC: LAB.R 11:30
PROVIDERS: ATTEND Advanced Practice Midwife
DX: N89.8 Other specified noninflammatory disorders of vagina (principal); Z39.1 Encounter for care and examination of lactating mother
CPT/HCPCS: 87661; 87801

== ENCOUNTER 2021-03-30 16:12 | Emergency (ER) | payer MEDICAID, OTHER ==
[2021-03-30] MEDS ORDERED: KETOROLAC 30 MG/ML VIAL IVP STA (16:30)
[2021-03-30] MEDS ORDERED: SODIUM CHLORIDE 0.9% 1,000 ML IV STA (16:30)
[2021-03-30] MEDS ORDERED: ONDANSETRON 4 MG/2 ML VIAL IVP STA (16:30)
--- NOTE | 2021-03-30 16:38 | ED Physician Documentation ---
PD HPI NVD - Stated complaint Stated Complaint: VOMITING/ABD PX/NUMB/HEADACHE - Chief complaint Chief Complaint: Abd Pain - History obtained from History obtained from: Patient - Additonal information Additional information: Previously healthy 20-year-old woman with IUD in place presents with 3 days of vomiting and diarrhea. She does have a history of opiate addiction and is on Suboxone but it is sublingual and she feels like she is keeping it absorbed. She denies blood from either end. She has gotten dizzy with facial and peripheral numbness while in the shower and at some other times. No sick contacts. No fevers. Review of Systems Ten Systems: 10 systems reviewed and negative Constitutional: reports: Myalgias, Sweats. denies: Fever, Chills GI: reports: Abdominal Pain, Nausea, Vomiting, Diarrhea PD PAST MEDICAL HISTORY - Past Medical History Cardiovascular: None Respiratory: None Neuro: None Endocrine/Autoimmune: None GI: None : None Musculoskeletal: None Derm: None - Past Surgical History Past Surgical History: No - Present Medications Home Medications: Ambulatory Orders Medication Instructions Recorded Confirmed buprenorphine HCL [Buprenorphine 8 mg SL DAILY 03/30/21 03/30/21 HCl] - Allergies Allergies/Adverse Reactions: Allergies Allergy/AdvReac Type Severity Reaction Status Date / Time No Known Drug Allergies Allergy Verified 03/30/21 16:19 - Social History Does the pt smoke?: Yes Smoking Status: Current every day smoker Does the pt drink ETOH?: Yes Does the pt have substance abuse?: No - Immunizations Immunizations are current?: No PD ED PE NORMAL - Vitals Vital signs reviewed: Yes - General General: Alert and oriented X 3, Other (She is diaphoretic) - HEENT HEENT: PERRL, EOMI - Neck Neck: Supple, no meningeal sign, No bony TTP - Cardiac Cardiac: RRR, No murmur - Respiratory Respiratory: No respiratory distress, Clear bilaterally - Abdomen Abdomen: Normal bowel sounds, Soft, Non tender - Back Back: No CVA TTP, No spinal TTP - Derm Derm: Normal color, Warm and dry - Extremities Extremities: No edema, No calf tenderness / cord - Neuro Neuro: Alert and oriented X 3, Normal speech Results - Vitals Vitals: Vital Signs - 24 hr 03/30/21 03/30/21 16:17 16:57 Temperature 36.0 C L 37.3 C Heart Rate 107 H 85 Respiratory 16 16 Rate Blood Pressure 132/94 H 117/82 H O2 Saturation 99 99 Oxygen O2 Source Room air - Labs Labs: Laboratory Tests 03/30/21 03/30/21 16:45 17:11 WBC 14.0 H RBC 5.07 Hgb 16.0 Hct 47.4 H MCV 93.5 MCH 31.6 H MCHC 33.8 RDW 13.2 Plt Count 222 MPV 10.3 Neut # (Auto) Not Reportable Lymph # (Auto) Not Reportable [place] # (Auto) Not Reportable Eos # (Auto) Not Reportable Baso # (Auto) Not Reportable Absolute Nucleated RBC Not Reportable Total Counted 100 Band Neuts % (Manual) 7 Abnorm Lymph % (Manual) 0 Nucleated RBC % Not Reportable Neutrophils # (Manual) 11.5 H Lymphocytes # (Manual) 1.1 L Monocytes # (Manual) 1.4 H Eosinophils # (Manual) 0.0 Basophils # (Manual) 0.0 Differential Comment MANUAL DIFFERENTIAL Platelet Estimate NORMAL (130-450,000) Platelet Morphology NORMAL APPEARANCE RBC Morph Micro Appear NORMAL APPEARANCE Sodium 136 Potassium 2.6 L Chloride 97 L Carbon Dioxide 22 Anion Gap 17.0 H BUN 18 Creatinine 0.9 Estimated GFR (MDRD) 79 L Glucose 98 Calcium 7.9 L Total Bilirubin 1.2 H AST 37 ALT 49 Alkaline Phosphatase 75 Total Protein 8.4 H Albumin 4.3 Globulin 4.1 Albumin/Globulin Ratio 1.0 Lipase 20 L PD MEDICAL DECISION MAKING - ED course ED course: 20-year-old woman with 3 days of vomiting and diarrhea, feeling much better after Zofran and Toradol and IV fluids. She had a benign exam on initial evaluation and on repeat exam at 5:30 PM, but remained completely nontender including to deep palpation in the lower abdomen. Close return precautions were discussed. Departure - Departure Disposition: 01 Home, Self Care Clinical Impression: Vomiting Qualifiers: Vomiting type: unspecified Vomiting Intractability: non-intractable Nausea presence: with nausea Qualified Code(s): R11.2 - Nausea with vomiting, unspecified Abdominal pain Qualifiers: Abdominal location: generalized Qualified Code(s): R10.84 - Generalized abdominal pain Diarrhea Qualifiers: Diarrhea type: unspecified type Qualified Code(s): R19.7 - Diarrhea, unspecified Condition: Good Record reviewed to determine appropriate education?: Yes Instructions: ED Nausea Vomiting Comments: If you worsen, or fail to improve over the next 12 hours please return for reevaluation.
[2021-03-30 16:53] LABS: BASOPHILS % (AUTO) 0.4 %; HCT - HEMATOCRIT 47.4 % (37.0-47.0); LYMPHOCYTES % (AUTO) 11.4 %; MEAN CORPUSCULAR HEMOGLOBIN 31.6 pg (27.0-31.0); MEAN CORPUSCULAR HGB CONC 33.8 g/dL (32.0-36.0); MEAN CORPUSCULAR VOLUME 93.5 fL (81.0-99.0); MEAN PLATELET VOLUME 10.3 fL (7.9-10.8); MONOCYTES % (AUTO) 12.7 %; NEUTROPHILS % (AUTO) 74.9 %; PLT - PLATELET COUNT 222 10^3/uL (130-450); RED BLOOD COUNT 5.07 10^6/uL (4.20-5.40); RED CELL DISTRIBUTION WIDTH 13.2 % (12.0-15.0)
[2021-03-30 16:55] LABS: ABNORMAL LYMPHS % (MANUAL) 0 %
[2021-03-30 17:20] LABS: BAND NEUTROPHILS % (MANUAL) 7 %; DIFFERENTIAL COMMENT MANUAL DIFFERENTIAL; LYMPHOCYTES # (MANUAL) 1.1 10^3/uL (1.5-3.5); LYMPHOCYTES % (MANUAL) 8 %; MONOCYTES # (MANUAL) 1.4 10^3/uL (0.0-1.0); NEUTROPHILS # (MANUAL) 11.5 10^3/uL (1.5-6.6); PLATELET ESTIMATE, MANUAL NORMAL (130-450,000) (NORMAL); PLATELET MORPHOLOGY NORMAL APPEARANCE (NORMAL); RBC MORPHOLOGY (MULTIPLE) NORMAL APPEARANCE (NORMAL)
[2021-03-30 17:28] LABS: ALBUMIN 4.3 g/dL (3.2-5.5); BILIRUBIN,TOTAL 1.2 mg/dL (0.2-1.0); CALCIUM 7.9 mg/dL (8.5-10.3); CREATININE 0.9 mg/dL (0.4-1.0); POTASSIUM 2.6 mmol/L (3.5-5.0); TOTAL PROTEIN 8.4 g/dL (6.7-8.2)
[2021-03-30] MEDS ORDERED: ONDANSETRON ODT 4 MG Prepack 2 TL STA (17:34)
[2021-03-30 18:07] VITALS: BP 127/89
== END 2021-03-30 18:08 | disposition home or self-care (01) ==
LOC: ED 16:12
DX: R11.2 Nausea with vomiting, unspecified (principal); R19.7 Diarrhea, unspecified; R10.84 Generalized abdominal pain; Z97.5 Presence of (intrauterine) contraceptive device; F17.200 Nicotine dependence, unspecified, uncomplicated
CPT/HCPCS: 36415; 80053; 83690; 85025; 96374; 96375; 99283

== ENCOUNTER 2024-04-25 20:47 | Outpatient (CLI) | payer SELFPAY | END 2024-04-25 23:59 | disposition critical access hospital (66) | LOC: EMS 20:47 | PROVIDERS: ATTEND Emergency Medicine | DX: T40.411A Poisoning by fentanyl or fentanyl analogs, accidental (unintentional), initial encounter (principal) | CPT/HCPCS: A0425; A0429 ==

== ENCOUNTER 2024-04-25 21:04 | Emergency (ER) | payer MEDICAID, OTHER ==
[2024-04-25 21:24] LABS: BASOPHILS # (AUTO) 0.1 10^3/uL (0.0-0.1); BASOPHILS % (AUTO) 0.6 %; EOSINOPHILS % (AUTO) 0.2 %; HGB - HEMOGLOBIN 12.8 g/dL (12.0-16.0); LYMPHOCYTES # (AUTO) 2.1 10^3/uL (1.5-3.5); LYMPHOCYTES % (AUTO) 11.9 %; MEAN CORPUSCULAR HGB CONC 33.7 g/dL (32.0-36.0); MEAN CORPUSCULAR VOLUME 100.8 fL (81.0-99.0); MEAN PLATELET VOLUME 7.8 fL (7.9-10.8); MONOCYTES % (AUTO) 5.7 %; NEUTROPHILS # (AUTO) 14.1 10^3/uL (1.5-6.6); NEUTROPHILS % (AUTO) 79.8 %; NRBC ABSOLUTE COUNT (AUTO) 0.04 x10^3/uL; NUCLEATED RED BLOOD CELLS AUTO 0.2 /100WBC; PLT - PLATELET COUNT 267 10^3/uL (130-450); RED BLOOD COUNT 3.77 10^6/uL (4.20-5.40); RED CELL DISTRIBUTION WIDTH 11.8 % (12.0-15.0); WHITE BLOOD COUNT 17.7 x10^3/uL (4.8-10.8)
--- NOTE | 2024-04-25 21:26 | ED Physician Documentation ---
PD HPI OVERDOSE - Stated complaint Stated Complaint: OD - Chief complaint Chief Complaint: Resp - History obtained from History obtained from: Patient, EMS - History of Present Illness Subtance(s) ingested: Narcotic Associated symptoms: No: Cardiac arrest, Resp depression, Resp arrest, Unresponsive, Decreased responsiveness, Altered mental status, Agitated, Combative, Hallucinations, Chest pain, Abdominal pain, Palpitations, Dyspnea, Diaphoresis, NVD Contributing factors: Substance abuse Pain level max: 0 Pain level now: 0 - Additional information Additional information: Patient is a 23-year-old female who presents to the emergency department stating that she accidentally overdosed on fentanyl tonight at home. She lives at home with her parents. She states she is not suicidal. She states she had been clean for a year up until tonight when she decided to use fentanyl. Upon arrival, EMS administered 4 mg of naloxone. Patient has been awake and alert en route to the hospital. She is currently asymptomatic. No nausea or vomiting. No chest pain. No shortness of breath. No falls or injuries from the overdose. She overdosed in the bathroom. Review of Systems Constitutional: denies: Fever, Chills Respiratory: denies: Dyspnea, Cough, Wheezing GI: denies: Vomiting, Diarrhea Skin: denies: Rash Musculoskeletal: denies: Neck pain, Back pain Neurologic: denies: Headache PD PAST MEDICAL HISTORY - Past Medical History Cardiovascular: None Respiratory: None Neuro: None Endocrine/Autoimmune: None GI: None : None Musculoskeletal: None Derm: None - Past Surgical History Past Surgical History: No General: Cholecystectomy - Present Medications Home Medications: Ambulatory Orders Medication Instructions Recorded Confirmed buprenorphine HCL [Buprenorphine 8 mg SL DAILY 03/30/21 03/30/21 HCl] - Allergies Allergies/Adverse Reactions: Allergies Allergy/AdvReac Type Severity Reaction Status Date / Time No Known Drug Allergies Allergy Verified 03/30/21 16:19 - Social History Does the pt smoke?: Yes Smoking Status: Current every day smoker Does the pt drink ETOH?: Yes ETOH Use: Beer Does the pt have substance abuse?: No Substance Use and Type: Other - Immunizations Immunizations are current?: Yes - POLST Patient has POLST: No PD ED PE NORMAL - Vitals Vital signs reviewed: Yes - General General: Alert and oriented X 3, No acute distress - HEENT HEENT: Moist mucous membranes - Neck Neck: Supple, no meningeal sign - Cardiac Cardiac: RRR - Respiratory Respiratory: No respiratory distress, Clear bilaterally - Abdomen Abdomen: Soft, Non tender, Non distended - Back Back: No CVA TTP - Derm Derm: Warm and dry - Extremities Extremities: No edema, No calf tenderness / cord - Neuro Neuro: Alert and oriented X 3 Results - Vitals Vitals: Vital Signs - 24 hr 04/25/24 04/25/24 04/25/24 21:11 22:10 23:13 Temperature 36 C L 36 C L Heart Rate 119 H 99 89 Respiratory 25 H 20 16 Rate Blood Pressure 156/67 H 111/71 122/63 O2 Saturation 95 94 96 Oxygen O2 Source Room air - EKG (time done) 2122 EKG releavant findings:: EKG personally interpreted by author of this note. Relevant findings are: Rate: Rate (enter#) (105) Rhythm: Sinus tachycardia [place]: Normal Intervals: Normal SD QRS: Normal Ischemia: Normal ST segments - Labs Labs: Laboratory Tests 04/25/24 04/25/24 21:19 21:19 WBC 17.7 H RBC 3.77 L Hgb 12.8 Hct 38.0 MCV 100.8 H MCH 34.0 H MCHC 33.7 RDW 11.8 L Plt Count 267 MPV 7.8 L Neut # (Auto) 14.1 H Lymph # (Auto) 2.1 [place] # (Auto) 1.0 Eos # (Auto) 0.0 Baso # (Auto) 0.1 Absolute Nucleated RBC 0.04 Nucleated RBC % 0.2 Sodium 135 Potassium 3.5 Chloride 100 L Carbon Dioxide 20 L Anion Gap 15.0 H BUN 11 Creatinine 1.1 Estimated GFR (MDRD) 61 L Glucose 162 H Calcium 8.3 L Magnesium 1.7 Total Bilirubin 0.3 AST 189 H ALT 58 Alkaline Phosphatase 83 Total Creatine Kinase 163 Total Protein 7.0 Albumin 4.2 Globulin 2.8 Albumin/Globulin Ratio 1.5 Lipase 12 TSH 4.11 Salicylates < 1.5 Acetaminophen 0.3 Ethyl Alcohol 109.9 PD Medical Decision Making - ED course Complexity details: reviewed results, re-evaluated patient, considered differential, d/w patient ED course: Patient remained asymptomatic in the emergency department other than some nausea. She is tolerating p.o. without difficulty. She refused a urine sample. She states that she had been drinking vodka earlier tonight. She did not need any repeat doses of Narcan after over 3 hours status post her last dose. Narcan was dispensed with the patient and her mother. She is not suicidal or homicidal. Does not want to go to detox or rehab, states that this was her first use after being clean for about a year. She does not want to speak to social work in the morning. Given that she has been awake and alert with no symptoms after approximately 4 hours since she last smoked the fentanyl and 3 hours post narcan, We will discharge her in the care of her mother. Patient counseled regarding signs and symptoms for which I believe and urgent re- evaluation would be necessary. Patient with good understanding of and agreement to plan and is comfortable going home at this time This document was made in part using voice recognition software. While efforts are made to proofread this document, sound alike and grammatical errors may occur. Departure - Departure Disposition: 01 Home, Self Care Clinical Impression: Accidental fentanyl overdose Qualifiers: Encounter type: initial encounter Qualified Code(s): T40.411A - Poisoning by fentanyl or fentanyl analogs, accidental (unintentional), initial encounter Alcohol intoxication Qualifiers: Complication of substance-induced condition: uncomplicated Qualified Code(s): F10.920 - Alcohol use, unspecified with intoxication, uncomplicated Condition: Good Instructions: ED Alcohol Intoxication, ED Overdose Accidental Follow-Up: your,doctor in 3 days [Other] Comments: You were given a naloxone kit to take home tonight. Please make sure you are following up with your doctor regarding your substance abuse. [facility] is a detox facility on the [place]. If you have to use the naloxone, you need to call 911 and be brought to the emergency department right away as the naloxone does not last very long. Contact: [facility] [address] [place] [phone] Fax: Forms: PCP List Discharge Date/Time: 04/25/24 23:21
[2024-04-25 21:46] LABS: ACETAMINOPHEN 0.3 ug/mL; ALBUMIN 4.2 g/dL (3.2-5.5); ALBUMIN/GLOBULIN RATIO 1.5 (1.0-2.2); ALKALINE PHOSPHATASE 83 IU/L (42-121); ALT ALANINE AMINOTRANSFERASE 58 IU/L (10-60); AST ASPARTATE AMINOTRANSFERASE 189 IU/L (10-42); BILIRUBIN,TOTAL 0.3 mg/dL (0.2-1.0); BUN - BLOOD UREA NITROGEN 11 mg/dL (6-20); CALCIUM 8.3 mg/dL (8.5-10.3); CARBON DIOXIDE - CO2 20 mmol/L (21-32); CHLORIDE 100 mmol/L (101-111); CK- CREATINE KINASE 163 IU/L (30-223); CREATININE 1.1 mg/dL (0.6-1.3); ETOH - ETHANOL 109.9 mg/dL; GFR - MDRD 61 (>89); GLUCOSE 162 mg/dL (74-104); LIPASE 12 U/L (11-82); MAGNESIUM 1.7 mg/dL (1.7-2.3); POTASSIUM 3.5 mmol/L (3.5-4.5); SODIUM 135 mmol/L (135-145)
[2024-04-25] MEDS: SODIUM CHLORIDE 0.9% 1,000 ML IV STA (21:47)
[2024-04-25 21:55] LABS: SALICYLATE < 1.5 mg/dL
[2024-04-25] MEDS: ONDANSETRON 4 MG/2 ML VIAL IVP STA (22:01)
[2024-04-25 22:26] LABS: THYROID STIMULATING HORMONE 4.11 uIU/mL (0.34-5.60)
[2024-04-25] MEDS: NALOXONE HCL NASAL SPRAY KIT NAS STA (23:20)
[2024-04-25 23:21] VITALS: BP 122/63; O2SAT 96
== END 2024-04-25 23:21 | disposition home or self-care (01) ==
LOC: EDUNIT# → ED 21:04
DX: T40.411A Poisoning by fentanyl or fentanyl analogs, accidental (unintentional), initial encounter (principal); F10.129 Alcohol abuse with intoxication, unspecified; F11.10 Opioid abuse, uncomplicated; Y90.5 Blood alcohol level of 100-119 mg/100 ml; F17.200 Nicotine dependence, unspecified, uncomplicated
CPT/HCPCS: 36415; 80053; 80143; 80179; 82077; 82550; 83690; 83735; 84443; 85025; 93005; 96374; 99283; 99284; G2215

== ENCOUNTER 2024-06-25 21:27 | Outpatient (CLI) | payer SELFPAY | END 2024-06-25 23:59 | disposition left against medical advice (07) | LOC: EMS 21:27 | DX: T40.411A Poisoning by fentanyl or fentanyl analogs, accidental (unintentional), initial encounter (principal) ==

== ENCOUNTER 2024-11-18 02:41 | Inpatient (IN) ==
--- NOTE | 2024-11-18 02:59 | ED Physician Documentation ---
History of Present Illness Stated complaint Stated Complaint: UNABLE TO WALK Chief complaint Chief Complaint: General Additonal information Additional information: 24-year-old history of alcohol use disorder and opioid use disorder presents from [facility] for gait problem. Patient was admitted on November 16 for alcohol and opioid withdrawal treatment. She was seen here on the for the same. She states she has not used alcohol since the . She denies a history of complicated withdrawal including seizures or difficulty ambulating in the past. Apparently, she has been unable to ambulate at the facility and requiring a wheelchair for ambulation. She denies any specific muscle weakness, numbness tingling, speech difficulty, headache, or bowel or bladder incontinence. She is not having back pain. She denies chest pain or dyspnea. I reviewed her records, she has been on CIWA at [facility] with the last score of 2 and receiving as needed benzodiazepines for alcohol withdrawal. Meds/Allgy Home Medications Ambulatory Orders Medication Instructions Recorded Confirmed acetaminophen 500 mg tablet 1,000 mg PO Q6H PRN fever or pain 11/18/24 11/18/24 bisacodyl 5 mg tablet 5 - 15 mg PO DAILY PRN constipation 11/18/24 11/18/24 bismuth subsalicylate 262 mg 2 tab PO Q2H PRN diarrhea 11/18/24 11/18/24 chewable tablet (Bismuth) calcium carbonate 500 - 1,000 mg PO DAILY PRN 11/18/24 11/18/24 dyspepsia clonidine HCl 0.1 mg tablet 0.1 mg PO Q4H PRN anxiety 11/18/24 11/18/24 dicyclomine 10 mg capsule 10 mg PO QID PRN abdominal pain 11/18/24 11/18/24 docusate sodium 100 mg capsule 100 mg PO BID PRN constipation 11/18/24 11/18/24 (Colace) gabapentin 300 mg capsule 300 mg PO TID 11/18/24 11/18/24 hydroxyzine pamoate 50 mg capsule 50 mg PO Q6HR PRN anxiety 11/18/24 11/18/24 ibuprofen 200 mg tablet (Advil) 600 mg PO Q6HR PRN fever or pain 11/18/24 11/18/24 loperamide 2 mg capsule (Imodium 2 mg PO Q2H PRN loose stool 11/18/24 11/18/24 A-D) lorazepam 1 mg tablet (Ativan) 1 mg PO Q4H PRN alcohol withdrawal 11/18/24 11/18/24 melatonin 10 mg capsule 10 mg PO HS PRN sleep 11/18/24 11/18/24 methocarbamol 750 mg tablet 750 mg PO Q6HR PRN spasms 11/18/24 11/18/24 multivitamin (Daily Multi-Vitamin 1 tab PO DAILY 11/18/24 11/18/24 tablet) ondansetron 4 mg disintegrating 4 mg PO Q8H PRN nausea and vomiting 11/18/24 11/18/24 tablet promethazine 12.5 mg tablet 12.5 mg PO TID PRN nausea and 11/18/24 11/18/24 vomiting trazodone 50 mg tablet 50 - 100 mg PO HS PRN insomnia 11/18/24 11/18/24 vitamin B complex (Vitamins B 1 tab PO DAILY 11/18/24 11/18/24 Complex tablet) Allergies Allergies Allergy/AdvReac Type Severity Reaction Status Date / Time No Known Drug Allergies Allergy Verified 11/18/24 02:59 PFSH Social History Social History Smoking Status: Current every day smoker Do you vape?: Yes Living arrangement: At home Relationship: Level: Assisted Do you feel safe in your home environment?: Yes Suffered physical, verbal, emotional, or financial abuse?: No History of Abuse: No ETOH Use: Beer Frequency: Weekly Substance Use: opiods/painkillers POLST Patient has POLST: No Exam Exam Lying on stretcher in no distress. Patient is awake, alert, and oriented to person, place, time, and situation. Speech is fluent. Cranial nerves II through XII intact bilaterally. There is no nystagmus. 5 out of 5 strength in the bilateral upper and lower extremities. During the Romberg test, she is able to stand with her eyes closed and arms pronated and outstretched. She does not stumble or drop an arm. Patient able to ambulate with walker without difficulty. However, after the Romberg test, she started to states she felt weak in her left leg and collapsed to the ground. [id number] and [id number] intact bilaterally. Lungs clear to auscultation bilaterally. Heart rate is tachycardic but regular. There is no abdominal tenderness. Results Vitals Vitals: Vital Signs - 24 hr 11/18/24 02:56 11/18/24 02:59 11/18/24 05:00 Temperature 36.6 C Temperature Source Tympanic Pulse Rate 126 H 111 H Respiratory Rate 18 16 Blood Pressure 115/53 L 95/60 O2 Saturation 96 96 O2 Source Room air Room air Pain Intensity 0 0 0 11/18/24 07:19 11/18/24 09:48 11/18/24 10:56 Temperature 37.2 C 36.6 C Temperature Source Temporal Artery Scan Temporal Artery Scan Pulse Rate 120 H 115 H 116 H Respiratory Rate 18 25 H 26 H Blood Pressure 102/61 126/80 116/75 O2 Saturation 94 96 96 O2 Source Room air Room air Room air Pain Intensity 0 0 0 11/18/24 13:14 11/18/24 13:49 11/18/24 15:13 Temperature 36.6 C Temperature Source Temporal Artery Scan Pulse Rate 123 H 123 H 113 H Respiratory Rate 17 18 22 Blood Pressure 149/116 H 119/88 132/97 H O2 Saturation 94 99 O2 Source Room air Room air Room air Pain Intensity 0 0 0 11/18/24 16:04 11/18/24 16:55 Temperature 36.7 C Temperature Source Temporal Artery Scan Pulse Rate 115 H 119 H Respiratory Rate 24 19 Blood Pressure 109/62 106/75 O2 Saturation 97 98 O2 Source Room air Room air Pain Intensity 0 0 Oxygen O2 Source Room air EKG (time done) 03:18: EKG releavant findings:: EKG personally interpreted by author of this note. Relevant findings are: Rate: Rate (enter#) (118) Rhythm: NSR [place]: Normal Intervals: Normal [place] and Prolonged QT QRS: QRS normal Ischemia: Non specific changes; No Normal ST segments, ST elevation c/w ischemia, ST elevation c/w repol or Hyperacute T waves Computer interpretation: Agree with computer Labs Labs: Laboratory Tests 11/18/24 11/18/24 11/18/24 03:06 06:32 07:50 WBC 16.6 H RBC 3.02 L Hgb 10.6 L Hct 31.7 L MCV 105.0 H MCH 35.1 H MCHC 33.4 RDW 15.2 H Plt Count 355 MPV 8.7 Neut # (Auto) 12.0 H Lymph # (Auto) 3.0 [place] # (Auto) 1.2 H Eos # (Auto) 0.1 Baso # (Auto) 0.1 Absolute Nucleated RBC 0.41 Nucleated RBC % 2.5 Sodium 134 L 134 L Potassium 2.6 L 3.4 L Chloride 94 L 102 Carbon Dioxide 24 22 Anion Gap 16.0 H 10.0 BUN 11 9 Creatinine 1.1 0.8 Estimated GFR (MDRD) 61 L 87 L Glucose 114 H 99 Calcium 7.8 L 6.8 L Magnesium 1.5 L 2.9 H Total Bilirubin 4.7 H Direct Bilirubin 2.87 H AST 169 H ALT 60 Alkaline Phosphatase 147 H Ammonia 36.6 29.4 Total Protein 7.2 Albumin 3.7 Globulin 3.5 Albumin/Globulin Ratio 1.1 PD Medical Decision Making ED course ED course: Patient presents from alcohol detox due to ambulatory dysfunction and recurrent falls. Upon arrival here, she is continually tachycardic. Blood pressure is somewhat soft but not hypotensive. I am concerned that she could still be in some alcohol withdrawal or significantly dehydrated due to days of heavy alcohol use. I will check labs and provide D5 normal saline. Labs show significant hypomagnesemia and hypokalemia. Repletion of these electrolytes was ordered with IV and p.o. formulations. She has alcoholic ketoacidosis. When I tried ambulating her, she was able to ambulate with a walker without difficulty. However she did fall after standing for a short period of time. Romberg test was normal. Strength of upper and lower extremities appears normal bilaterally. She has a leukocytosis on the unknown source. I do not believe there is active infection. I did order CT head for possible altered mental status evaluation. This was normal. Patient was signed out to day team Dr. Mars with plans for MRI brain and likely admission. Discharge Plan Discharge Patient Disposition: 66 [facility] DC/Xfer Clinical Impression: Alcoholic ketoacidosis, Hypokalemia, Hypomagnesemia, Elevated bilirubin
[2024-11-18 03:12] LABS: BASOPHILS # (AUTO) 0.1 10^3/uL (0.0-0.1); BASOPHILS % (AUTO) 0.7 %; EOSINOPHILS # (AUTO) 0.1 10^3/uL (0.0-0.7); EOSINOPHILS % (AUTO) 0.8 %; HCT - HEMATOCRIT 31.7 % (37.0-47.0); HGB - HEMOGLOBIN 10.6 g/dL (12.0-16.0); LYMPHOCYTES % (AUTO) 17.9 %; MEAN CORPUSCULAR HEMOGLOBIN 35.1 pg (27.0-31.0); MEAN CORPUSCULAR HGB CONC 33.4 g/dL (32.0-36.0); MEAN PLATELET VOLUME 8.7 fL (7.9-10.8); MONOCYTES # (AUTO) 1.2 10^3/uL (0.0-1.0); MONOCYTES % (AUTO) 7.3 %; NRBC ABSOLUTE COUNT (AUTO) 0.41 x10^3/uL; NUCLEATED RED BLOOD CELLS AUTO 2.5 /100WBC; PLT - PLATELET COUNT 355 10^3/uL (130-450); RED BLOOD COUNT 3.02 10^6/uL (4.20-5.40); RED CELL DISTRIBUTION WIDTH 15.2 % (12.0-15.0); WHITE BLOOD COUNT 16.6 x10^3/uL (4.8-10.8)
[2024-11-18] MEDS ORDERED: FOLIC ACID 5 MG/1 ML 10ML MDV ONE (03:14)
[2024-11-18] MEDS ORDERED: THIAMINE 100 MG/1 ML 2 ML MDV ONE (03:14)
[2024-11-18] MEDS: THIAMINE INJ 100 MG, FOLIC ACID INJ 1 MG in SODIUM CHLORIDE 0.9% 1,000 ML IV STA (03:21)
[2024-11-18 03:25] LABS: BILIRUBIN,DIRECT 2.87 mg/dL (0.03-0.18); MAGNESIUM 1.5 mg/dL (1.7-2.3)
[2024-11-18 03:35] LABS: ALBUMIN 3.7 g/dL (3.2-5.5); ALBUMIN/GLOBULIN RATIO 1.1 (1.0-2.2); BILIRUBIN,TOTAL 4.7 mg/dL (0.2-1.0); CALCIUM 7.8 mg/dL (8.5-10.3); CREATININE 1.1 mg/dL (0.6-1.3); POTASSIUM 2.6 mmol/L (3.5-4.5); TOTAL PROTEIN 7.2 g/dL (6.4-8.9)
[2024-11-18] MEDS: MAGNESIUM SULFATE IN WATER 20 GM/500 ML IV.SOLN IV SCH (03:51)
[2024-11-18] MEDS: MAGNESIUM SULFATE 2 GRAM 2 GM/50 ML BAG IV ONE ×3 (04:02→18:54)
[2024-11-18] MEDS: POTASSIUM CHLORIDE 20 MEQ TABLET PO STA (04:02)
[2024-11-18] MEDS: POTASSIUM CHLOR 10 MEQ/100 ML 10 MEQ/100 ML BAG IV SCH (04:02)
[2024-11-18] MEDS: DEXTROSE 5%-0.9% NACL 1,000 ML IV STA (04:13)
[2024-11-18] MEDS ORDERED: ACETAMINOPHEN 500 MG TABLET PO PRN (07:33)
--- NOTE | 2024-11-18 07:36 | ED Physician Documentation ---
ED Addendum Addendum Addendum: Care from overnight physician at 7 AM shift change. Briefly she was brought in from detox for frequent falls and inability to ambulate. She was detoxing from alcohol mostly but also fentanyl. She was seen and examined at the bedside. She does appear shaky. She will answer simple questions but for more complex questions she is noted to be encephalopathic, she will get off topic very quickly and then sort of trail off. She is boarding in the emergency department pending admission as there are no beds available. Labs reviewed and she does have a macrocytic anemia, hypokalemia, hypomagnesemia which actually on recheck this morning is elevated, modest elevation in liver enzymes in a pattern consistent with alcoholic hepatitis I note that she does not have an ammonia ordered so I will check that. Head CT was unremarkable. She also did not have an alcohol level checked which I will check, but unlikely that she has been in detox. Will obtain MRI imaging of the head and abdominal ultrasound to follow-up on her elevated liver enzymes, will do high-dose scheduled thiamine, PT OT consults. RDMS reports to me that her abdominal ultrasound demonstrates an enlarged fatty liver with a surgically absent gallbladder. 8:45 AM: She is trying to get out of bed, is redirectable but requiring increasing nursing attention. She appears very shaky and tachycardic. She received 1 mg of Ativan IV 9:18 AM: She is becoming more tachycardic and tremulous. 2 mg Ativan ordered IV. 10:37 AM, she does look to have calm down a bit after the 2 mg of Ativan IV. She still seems to be hallucinating and shaky, but less tachycardic. 10:58 AM: Per SARITA SERRATO 18, reordered Ativan 2:20 PM: A bed has become available and ACACIA Thompson is admitting. Critical care time: 38 minutes mostly in direct patient care and repeat doses of medications for alcohol withdrawal but also charting and review of diagnostics. Discharge Plan Discharge Patient Disposition: 66 [facility] DC/Xfer Clinical Impression: Alcoholic ketoacidosis, Hypokalemia, Hypomagnesemia, Elevated bilirubin Prescriptions: No Action gabapentin 300 mg capsule 300 mg PO TID Patient Comments: for withdrawals multivitamin [Daily Multi-Vitamin] Tablet 1 tab PO DAILY vitamin B complex [Vitamins B Complex] Tablet 1 tab PO DAILY acetaminophen 500 mg tablet 1,000 mg PO Q6H PRN (Reason: fever or pain) bisacodyl 5 mg tablet 5 - 15 mg PO DAILY PRN (Reason: constipation) bismuth subsalicylate [Bismuth] 262 mg tablet,chewable 2 tab PO Q2H PRN (Reason: diarrhea) Rx Instructions: do not exceed 16 tabs per 24 hrs calcium carbonate 500 mg calcium (1,250 mg) tablet,chewable 500 - 1,000 mg PO DAILY PRN (Reason: dyspepsia) clonidine HCl 0.1 mg tablet 0.1 mg PO Q4H PRN (Reason: anxiety) Patient Comments: for withdrawals dicyclomine 10 mg capsule 10 mg PO QID PRN (Reason: abdominal pain) docusate sodium [Colace] 100 mg capsule 100 mg PO BID PRN (Reason: constipation) hydroxyzine pamoate 50 mg capsule 50 mg PO Q6HR PRN (Reason: anxiety) Patient Comments: for withdrawals ibuprofen [Advil] 200 mg tablet 600 mg PO Q6HR PRN (Reason: fever or pain) loperamide [Imodium A-D] 2 mg capsule 2 mg PO Q2H PRN (Reason: loose stool) Rx Instructions: until patient has gone 12 hours without a bowel movement lorazepam [Ativan] 1 mg tablet 1 mg PO Q4H PRN (Reason: alcohol withdrawal) melatonin 10 mg capsule 10 mg PO HS PRN (Reason: sleep) methocarbamol 750 mg tablet 750 mg PO Q6HR PRN (Reason: spasms) ondansetron 4 mg tablet,disintegrating 4 mg PO Q8H PRN (Reason: nausea and vomiting) promethazine 12.5 mg tablet 12.5 mg PO TID PRN (Reason: nausea and vomiting) Rx Instructions: 3 doses during day; last dose no later than 4 hr before bedtime trazodone 50 mg tablet 50 - 100 mg PO HS PRN (Reason: insomnia) Print Language: Georgian
[2024-11-18] MEDS: MULTIVITAMIN TABLET PO SCH (08:04)
[2024-11-18] MEDS: THIAMINE INJ 500 MG in SODIUM CHLORIDE 0.9% 50 ML IV SCH (08:06)
[2024-11-18 08:07] LABS: CALCIUM 6.8 mg/dL (8.5-10.3); CREATININE 0.8 mg/dL (0.6-1.3); POTASSIUM 3.4 mmol/L (3.5-4.5)
--- NOTE | 2024-11-18 08:30 | Ultrasound Report ---
PROCEDURE: US Abdomen Limited INDICATIONS: elev liver enzymes TECHNIQUE: Real-time focused scanning was performed of the abdomen, with image documentation. COMPARISONS: None. FINDINGS: Liver: Liver is normal in size and homogeneous in echotexture. The parenchyma is mildly hyperechoic . Gallbladder: Absent. Biliary ducts: Intrahepatic bile ducts are non-dilated. Extrahepatic bile duct caliber measures 5 m m. Normal is 6-7 mm or less in diameter, or 10 mm or less post-cholecystectomy. Pancreas: Obscured due to bowel gas. Right kidney: Normal in size and echotexture. Right kidney measures 9.9 cm long. No hydronephrosis o r nephrolithiasis. No solid masses. No complex renal cystic lesions which require follow-up. IVC: Intrahepatic inferior vena cava is patent. Miscellaneous: No free abdominal fluid. IMPRESSION: 1.Hepatic steatosis versus underlying hepatocellular disease. 2.Status post cholecystectomy. Reviewed by: Preet Epps MD on 11/18/2024 8:28 AM [facility] Approved by: Preet Epps MD on 11/18/2024 8:28 AM PST Station ID: [id number]
[2024-11-18] MEDS: LORazepam 2 MG/ML VIAL IVP STA ×4 (08:43→15:12)
--- NOTE | 2024-11-18 11:22 | CT Report ---
PROCEDURE: CT Head WO INDICATIONS: AMS, ambulatory difficulty TECHNIQUE: Noncontrast 4.5 mm thick angled axial sections acquired from the foramen magnum to the vertex. For r adiation dose reduction, the following was used: automated exposure control, adjustment of mA and/or kV according to patient size. COMPARISON: None. FINDINGS: Image quality: Excellent. CSF spaces: Basal cisterns are patent. No extra-axial fluid collections. Ventricles are normal in size and shape. Brain: No midline shift. No intracranial masses or hemorrhage. [place]-white matter interface is norm al. Skull and face: Calvarium and visualized facial bones are intact, without suspicious lesions. Sinuses: Visualized sinuses and mastoids are clear. IMPRESSION: No acute intracranial pathology. Note: No significant discrepancy from the preliminary report. Reviewed by: Jorge A Christie MD on 11/18/2024 10:21 AM [facility] Approved by: Jorge A Christie MD on 11/18/2024 10:21 AM [facility] Station ID: [id number]
--- NOTE | 2024-11-18 12:11 | MRI Report ---
PROCEDURE: MRI Brain WO INDICATIONS: ataxia TECHNIQUE: The patient terminating the examination before it could be completed. The following imaging sequences were obtained: Sagittal FLAIR and axial diffusion-weighted images with ADC map. COMPARISON: Correlation is made with the accompanying imaging. FINDINGS: The study is limited by patient motion artifact and the patient's inability to complete th is study. No acute infarct can be seen on the diffusion-weighted images. Brain parenchymal volume is within nor mal limits. Negative for hydrocephalus. No sirisha mass or mass effect can be seen. IMPRESSION: Highly limited study, without a sirisha acute intracranial abnormality. If clinically appropriate, please consider a repeat study, and the patient is able to tolerate the ex amination. Reviewed by: Jorge A Christie MD on 11/18/2024 11:09 AM [facility] Approved by: Jorge A Christie MD on 11/18/2024 11:09 AM [facility] Station ID: [id number]
--- NOTE | 2024-11-18 14:56 | HISTORY & PHYSICAL EXAMINATION ---
Chief Complaint Chief Complaint Chief Complaint: Unsteady on feet History of Present Illness Admitted From Admitted From:: [facility] History Obtained From Records Reviewed: Ed visits History obtained from: Patient Exam Limitations: encephalopathy History of Present Illness HPI Comment/Other: Presents to the emergency department about 12 hours prior to my encounter with her with complaints of not being able to ambulate. She was admitted for detox on November 16 for treatment of her alcohol and opioid addictions. Has not used alcohol since the . According to the emergency department encounter at the time of her initial presentation she had been on CIWA with a most recent CIWA score of 2. In any event here in the emergency department she is confabulating. She is oriented to person place and time but does not answer questions directly or correctly. For instance when I ask her where she lives and who she lives with she tells a story about moving to [place] and then moving back. She states she lives with her mother and her 5-year-old daughter [place] Meds/All Home Medications Ambulatory Orders Medication Instructions Recorded Confirmed acetaminophen 500 mg tablet 1,000 mg PO Q6H PRN fever or pain 11/18/24 11/18/24 bisacodyl 5 mg tablet 5 - 15 mg PO DAILY PRN constipation 11/18/24 11/18/24 bismuth subsalicylate 262 mg 2 tab PO Q2H PRN diarrhea 11/18/24 11/18/24 chewable tablet (Bismuth) calcium carbonate 500 - 1,000 mg PO DAILY PRN 11/18/24 11/18/24 dyspepsia clonidine HCl 0.1 mg tablet 0.1 mg PO Q4H PRN anxiety 11/18/24 11/18/24 dicyclomine 10 mg capsule 10 mg PO QID PRN abdominal pain 11/18/24 11/18/24 docusate sodium 100 mg capsule 100 mg PO BID PRN constipation 11/18/24 11/18/24 (Colace) gabapentin 300 mg capsule 300 mg PO TID 11/18/24 11/18/24 hydroxyzine pamoate 50 mg capsule 50 mg PO Q6HR PRN anxiety 11/18/24 11/18/24 ibuprofen 200 mg tablet (Advil) 600 mg PO Q6HR PRN fever or pain 11/18/24 11/18/24 loperamide 2 mg capsule (Imodium 2 mg PO Q2H PRN loose stool 11/18/24 11/18/24 A-D) lorazepam 1 mg tablet (Ativan) 1 mg PO Q4H PRN alcohol withdrawal 11/18/24 11/18/24 melatonin 10 mg capsule 10 mg PO HS PRN sleep 11/18/24 11/18/24 methocarbamol 750 mg tablet 750 mg PO Q6HR PRN spasms 11/18/24 11/18/24 multivitamin (Daily Multi-Vitamin 1 tab PO DAILY 11/18/24 11/18/24 tablet) ondansetron 4 mg disintegrating 4 mg PO Q8H PRN nausea and vomiting 11/18/24 11/18/24 tablet promethazine 12.5 mg tablet 12.5 mg PO TID PRN nausea and 11/18/24 11/18/24 vomiting trazodone 50 mg tablet 50 - 100 mg PO HS PRN insomnia 11/18/24 11/18/24 vitamin B complex (Vitamins B 1 tab PO DAILY 11/18/24 11/18/24 Complex tablet) Allergies Allergies Allergy/AdvReac Type Severity Reaction Status Date / Time No Known Drug Allergies Allergy Verified 11/18/24 02:59 PFSH Social History Social History Smoking Status: Current every day smoker Living arrangement: At home Relationship: Do you feel safe in your home environment?: Yes Suffered physical, verbal, emotional, or financial abuse?: No History of Abuse: No ETOH Use: Beer Frequency: Weekly POLST Patient has POLST: No POLST Status: Full Code Review of Systems Status of ROS: unobtainable due to mental status Prior Level of Functionality: lives with mother, history of substance abuse Exam Constitutional average body habitus disheveled HENMT normocephalic, head/scalp atraumatic, external ears normal and oral mucous membranes normal Eyes conjunctivae normal Neck/C-Spine visual inspection normal Lymph no lymphedema noted Respiratory breath sounds equal bilaterally and normal respiratory effort Cardiovascular tachycardia, sinus rhythm Gastrointestinal abdomen normal to inspection and abdomen soft to palpation Extremities normal to inspection, normal to palpation and full ROM Neurology banking manager II-XII intact, gait normal and GCS 15 GCS14- confused Psychiatry mental status abnormal, oriented x3 and psychomotor abnormality noted (restless) Skin skin color normal Conclusion/Plan Problem List (1) Alcohol withdrawal: Plan: She has not had a drink since the seventh. When asked her how much she drinks today she thinks about 1/5 of alcohol. Although she is a somewhat unreliable historian at this point. She is tremulous. She is mildly diaphoretic. She is agitated and picking at her clothing. Her heart rate is about 120. She is getting 2 mg of Ativan every 3 hours IV in the emergency department and this is keeping her symptoms relatively well-controlled however, I think she may require ICU level of care for at least 24 hours to get through the worst of her withdrawals. Her CIWA score is roughly 19 at the time I am seeing her. I have ordered CIWA protocol with IV Ativan. I am also going to give her Librium 50 mg every 6 hours for baseline benzodiazepine dosing. She will be observed in the ICU and should her agitation and delirium increase we can institute Precedex drip. I have left a voicemail on her mother's phone per the patient's request to let her mom know that she is here. Of course I have concerns about the patient checking herself out AMA. She seems unlikely to do this at this time but I have concerns about her agitation and delirium increasing. She has been in the emergency department about 12 hours. They have been holding her due to unavailability of beds on the floor. I discussed her with Dr. Poe this afternoon and we made the decision to admit her to the floor for further treatment of her alcohol withdrawal. Qualifiers: Complication of substance-induced condition: uncomplicated Qualified Code(s): F10.930 - Alcohol use, unspecified with withdrawal, uncomplicated (2) Opiate addiction: Plan: History of opioid addiction noted in the chart. I see a buprenorphine prescription for 8 mg noted in the chart. Will continue to monitor this patient. Should she have signs and symptoms of opiate withdrawal I will institute clonidine. We can give this in addition to the benzodiazepines used for alcohol withdrawal. (3) Hypomagnesemia: Plan: Has been repleted in the ED. I will give her additional 2 g of magnesium. She does have prolonged QT interval on EKG. Would like to get her magnesium up to normal levels. (4) Hypokalemia: Plan: Her potassium has been repleted in the emergency department. When she was seen here several days ago her potassium was 2.9, 2.6 on presentation, repleted 3.4 earlier today. Recheck BMP in the AM. (5) Elevated bilirubin: Plan: Bilirubin has been elevated several days ago 4.7. Has not been rechecked this admission. I will recheck bilirubin in the AM with a CMP. Plan I have spent 78 minutes in the care of this patient today. This includes time [id number], review and ordering of diagnostic imaging and laboratory studies and consultation with other providers.. Monitoring the patient's signs symptoms, evaluation of medication effectiveness and patient's response to treatment. Lab Results 11/18/24 03:06 11/18/24 07:50
[2024-11-18] MEDS: chlordiazePOXIDE 25 MG CAPSULE PO SCH (16:24)
[2024-11-18] MEDS ORDERED: SODIUM CHLORIDE FLUSH 0.9% 10 ML SYRINGE IVP PRN (17:58)
[2024-11-18] MEDS ORDERED: ACETAMINOPHEN 325 MG TABLET PO PRN (17:58)
[2024-11-18] MEDS ORDERED: ONDANSETRON 4 MG/2 ML VIAL IVP PRN (17:58)
[2024-11-18] MEDS ORDERED: PROCHLORPERAZINE 10 MG/2 ML VIAL IVP PRN (17:58)
[2024-11-18] MEDS: SODIUM CHLORIDE FLUSH 0.9% 10 ML SYRINGE IVP SCH (17:59)
[2024-11-18] MEDS: LORazepam 2 MG/ML VIAL IVP PRN (18:17)
[2024-11-18] MEDS: ONDANSETRON 4 MG/2 ML VIAL IVP PRN (19:56)
[2024-11-18] MEDS: DEXMEDETOMIDINE 400 MCG/100 ML 100 ML IV PRN (21:15)
[2024-11-18] MEDS: HEPARIN 5,000 UNIT/ML VIAL SUBQ SCH (21:48)
[2024-11-19 02:52] LABS: HCG UR QUAL NEGATIVE
[2024-11-19 05:10] LABS: BASOPHILS # (AUTO) 0.1 10^3/uL (0.0-0.1); BASOPHILS % (AUTO) 1.1 %; EOSINOPHILS # (AUTO) 0.2 10^3/uL (0.0-0.7); EOSINOPHILS % (AUTO) 1.9 %; HGB - HEMOGLOBIN 8.4 g/dL (12.0-16.0); LYMPHOCYTES # (AUTO) 2.2 10^3/uL (1.5-3.5); LYMPHOCYTES % (AUTO) 19.3 %; MEAN CORPUSCULAR HEMOGLOBIN 34.9 pg (27.0-31.0); MEAN CORPUSCULAR HGB CONC 32.3 g/dL (32.0-36.0); MEAN CORPUSCULAR VOLUME 107.9 fL (81.0-99.0); MEAN PLATELET VOLUME 10.2 fL (7.9-10.8); MONOCYTES # (AUTO) 0.8 10^3/uL (0.0-1.0); MONOCYTES % (AUTO) 6.6 %; NEUTROPHILS # (AUTO) 7.8 10^3/uL (1.5-6.6); NEUTROPHILS % (AUTO) 67.3 %; NRBC ABSOLUTE COUNT (AUTO) 0.41 x10^3/uL; NUCLEATED RED BLOOD CELLS AUTO 3.6 /100WBC; PLT - PLATELET COUNT 261 10^3/uL (130-450); RED BLOOD COUNT 2.41 10^6/uL (4.20-5.40); RED CELL DISTRIBUTION WIDTH 15.5 % (12.0-15.0); WHITE BLOOD COUNT 11.5 x10^3/uL (4.8-10.8)
[2024-11-19 05:24] LABS: CALCIUM, IONIZED 0.96 mmol/L (1.15-1.33); VBG PH 7.415 (7.31-7.41)
[2024-11-19 05:30] LABS: ALBUMIN/GLOBULIN RATIO 1.2 (1.0-2.2); BILIRUBIN,TOTAL 3.2 mg/dL (0.2-1.0); CREATININE 0.5 mg/dL (0.6-1.3); MAGNESIUM 1.9 mg/dL (1.7-2.3); POTASSIUM 2.9 mmol/L (3.5-4.5); TOTAL PROTEIN 5.6 g/dL (6.4-8.9)
[2024-11-19] MEDS: NEUTRA-PHOS 250 MG TABLET PO SCH (06:17)
[2024-11-19] MEDS: PANTOPRAZOLE 40 MG TABLET PO SCH (06:17)
[2024-11-19] MEDS: CALCIUM GLUCONATE IN NS 0.9% 2,000 MG/100 ML BAG IV ONE (06:22)
[2024-11-19] MEDS ORDERED: THIAMINE 100 MG/1 ML 2 ML MDV ONE ×2 (06:38→08:19)
[2024-11-19] MEDS: POTASSIUM CHLOR 10 MEQ/100 ML 10 MEQ/100 ML BAG IV SCH (07:26)
[2024-11-19] MEDS ORDERED: SODIUM CHLORIDE 0.9% 1,000 ML ONE (08:19)
[2024-11-19] MEDS: PRENATAL VITAMIN TABLET PO SCH (08:23)
[2024-11-19] MEDS: THIAMINE 100 MG TABLET PO SCH (08:23)
[2024-11-19] MEDS: MULTIVITAMIN 10 ML, THIAMINE INJ 100 MG, FOLIC ACID INJ 1 MG in SODIUM CHLORIDE 0.9% 1,... IV SCH (10:22)
[2024-11-19] MEDS: POTASSIUM CHLORIDE 20 MEQ TABLET PO ONE (12:56)
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
--- NOTE | 2024-11-19 14:23 | PHARMACY PROGRESS NOTE ---
Best Possible Medication History Admit Date and Time: 11/18/24 [id number] Home Medications Medication Instructions Recorded Confirmed Type acetaminophen 500 mg tablet 1,000 mg PO Q6H PRN fever or pain 11/18/24 11/18/24 History bisacodyl 5 mg tablet 5 - 15 mg PO DAILY PRN constipation 11/18/24 11/18/24 History bismuth subsalicylate 262 mg 2 tab PO Q2H PRN diarrhea 11/18/24 11/18/24 History chewable tablet (Bismuth) calcium carbonate 500 - 1,000 mg PO DAILY PRN 11/18/24 11/18/24 History dyspepsia clonidine HCl 0.1 mg tablet 0.1 mg PO Q4H PRN anxiety 11/18/24 11/18/24 History dicyclomine 10 mg capsule 10 mg PO QID PRN abdominal pain 11/18/24 11/18/24 History docusate sodium 100 mg capsule 100 mg PO BID PRN constipation 11/18/24 11/18/24 History (Colace) gabapentin 300 mg capsule 300 mg PO TID 11/18/24 11/18/24 History hydroxyzine pamoate 50 mg capsule 50 mg PO Q6HR PRN anxiety 11/18/24 11/18/24 History ibuprofen 200 mg tablet (Advil) 600 mg PO Q6HR PRN fever or pain 11/18/24 11/18/24 History loperamide 2 mg capsule (Imodium 2 mg PO Q2H PRN loose stool 11/18/24 11/18/24 H istory A-D) lorazepam 1 mg tablet (Ativan) 1 mg PO Q4H PRN alcohol withdrawal 11/18/24 11/18/24 History melatonin 10 mg capsule 10 mg PO HS PRN sleep 11/18/24 11/18/24 History methocarbamol 750 mg tablet 750 mg PO Q6HR PRN spasms 11/18/24 11/18/24 History multivitamin (Daily Multi-Vitamin 1 tab PO DAILY 11/18/24 11/18/24 History tablet) ondansetron 4 mg disintegrating 4 mg PO Q8H PRN nausea and vomiting 11/18/24 11/18/24 History tablet promethazine 12.5 mg tablet 12.5 mg PO TID PRN nausea and 11/18/24 11/18/24 History vomiting trazodone 50 mg tablet 50 - 100 mg PO HS PRN insomnia 11/18/24 11/18/24 History vitamin B complex (Vitamins B 1 tab PO DAILY 11/18/24 11/18/24 History Complex tablet) Processed by: Pharmacy Medications reviewed in ED?: No Medication History completed: Yes Patient Interview: Pt unable to participate Secondary Source(s): Caregiver and Insurance records [facility] Statement: As the person ultimately responsible for medication therapy, providers are able to order a medication from an existing home medication list in [facility] via the "Reconcile Routine" prior to Confirmation of that medication by director decision support. Such practice is discouraged except when the physician, in their clinical judgment, deems that a medical need exists for a medication without regard to previous use.
[2024-11-19 21:25] VITALS: TEMP 98.4
[2024-11-20 05:01] LABS: BASOPHILS % (AUTO) 1.5 %; EOSINOPHILS % (AUTO) 1.9 %; HCT - HEMATOCRIT 28.7 % (37.0-47.0); HGB - HEMOGLOBIN 9.1 g/dL (12.0-16.0); LYMPHOCYTES % (AUTO) 15.3 %; MEAN CORPUSCULAR HEMOGLOBIN 34.7 pg (27.0-31.0); MEAN CORPUSCULAR HGB CONC 31.7 g/dL (32.0-36.0); MEAN CORPUSCULAR VOLUME 109.5 fL (81.0-99.0); MEAN PLATELET VOLUME 9.2 fL (7.9-10.8); MONOCYTES % (AUTO) 7.3 %; PLT - PLATELET COUNT 360 10^3/uL (130-450); RED BLOOD COUNT 2.62 10^6/uL (4.20-5.40); RED CELL DISTRIBUTION WIDTH 16.2 % (12.0-15.0); WHITE BLOOD COUNT 12.3 x10^3/uL (4.8-10.8)
[2024-11-20 05:13] LABS: ABNORMAL LYMPHS % (MANUAL) 0 %; BAND NEUTROPHILS % (MANUAL) 0 %
[2024-11-20 05:18] LABS: CALCIUM 7.7 mg/dL (8.5-10.3); CREATININE 0.6 mg/dL (0.6-1.3); POTASSIUM 3.4 mmol/L (3.5-4.5)
[2024-11-20 05:20] LABS: MAGNESIUM 1.8 mg/dL (1.7-2.3); PHOSPHORUS 3.4 mg/dL (2.5-5.0)
[2024-11-20 05:23] LABS: CALCIUM, IONIZED 1.08 mmol/L (1.15-1.33); VBG PH 7.418 (7.31-7.41)
[2024-11-20 05:27] LABS: EOSINOPHILS # (MANUAL) 0.5 10^3/uL (0-0.7); LYMPHOCYTES # (MANUAL) 1.1 10^3/uL (1.5-3.5); LYMPHOCYTES % (MANUAL) 9 %; METAMYELOCYTES % (MANUAL) 1 %; MONOCYTES # (MANUAL) 0.7 10^3/uL (0.0-1.0); MYELOCYTES % (MANUAL) 2 %; NEUTROPHILS # (MANUAL) 9.6 10^3/uL (1.5-6.6)
[2024-11-20 05:29] LABS: DIFFERENTIAL COMMENT MANUAL DIFFERENTIAL; PLATELET ESTIMATE, MANUAL NORMAL (130-450,000) (NORMAL); PLATELET MORPHOLOGY NORMAL APPEARANCE (NORMAL); WBC MORPHOLOGY (MULTIPLE) NORMAL APPEARANCE (NORMAL)
[2024-11-20] MEDS: CALCIUM CARBONATE CHEW 500 MG TABLET PO SCH (07:01)
[2024-11-20] MEDS: MAGNESIUM OXIDE 400 MG TABLET PO ONE (07:01)
[2024-11-20] MEDS: POTASSIUM CHLORIDE 20 MEQ TABLET PO SCH (08:09)
--- NOTE | 2024-11-20 08:56 | PROVIDER PROGRESS NOTE ---
Current Medications Current Medications Current Medications: Current Medications Generic Name Dose Route Start Last Admin Trade Name Freq PRN Reason Stop Dose Admin Acetaminophen 1,000 mg 11/18/24 07:33 Acetaminophen 500 Mg Tablet PO Q6H PRN Mild Pain Or Fever>38c(100.4f) Acetaminophen 650 mg 11/18/24 17:58 Acetaminophen 325 Mg Tablet PO Q4HR PRN Pain 1 to 4, or Fever Calcium Carbonate/Glycine 1,250 mg 11/20/24 07:00 11/20/24 07:01 Calcium Carbonate Chew 500 Mg Tablet PO 11/20/24 11:01 1,250 mg Q4H LATIA Administration Protocol Chlordiazepoxide HCl 50 mg 11/18/24 16:00 11/20/24 04:31 Chlordiazepoxide 25 Mg Capsule PO 50 mg Q6H LATIA Administration Heparin Sodium (Porcine) 5,000 unit 11/18/24 21:00 11/20/24 08:08 Heparin 5,000 Unit/Ml Vial SUBQ 5,000 unit BID LATIA Administration Thiamine HCl 500 mg/ Sodium 55 mls @ 100 mls/hr 11/18/24 08:00 11/20/24 05:35 Chloride IV Infused TID LATIA Infusion Multivitamins 10 ml/ Thiamine 1,011.2 mls @ 100 mls/hr 11/19/24 09:00 11/19/24 20:53 HCl 100 mg/ Folic Acid 1 mg/ IV Infused Sodium Chloride DAILY LATIA Infusion Dexmedetomidine/Sodium Chloride 100 mls @ 4.4 mls/hr 11/18/24 22:00 11/20/24 08:00 Precedex Premix IV Infused .[id number] PRN Titration Agitation Protocol 0.2 MCG/KG/HR Lorazepam 2 mg 11/18/24 17:58 11/19/24 11:15 Lorazepam 2 Mg/Ml Vial IVP 2 mg Q30M PRN Administration CIWA >8 Protocol Multivitamins 1 tab 11/18/24 08:00 11/20/24 08:09 Multivitamin Tablet PO 1 tab DAILYWM LATIA Administration Ondansetron HCl 4 mg 11/18/24 07:33 11/18/24 19:56 Ondansetron 4 Mg/2 Ml Vial IVP 4 mg Q6HR PRN Administration Nausea / Vomiting Ondansetron HCl 4 mg 11/18/24 17:58 Ondansetron 4 Mg/2 Ml Vial IVP Q6HR PRN Nausea / Vomiting Pantoprazole Sodium 40 mg 11/19/24 07:00 11/20/24 07:01 Pantoprazole 40 Mg Tablet PO 40 mg QDAC LATIA Administration Potassium Chloride 20 meq 11/20/24 08:00 11/20/24 08:09 Potassium Chloride 20 Meq Tablet PO 11/20/24 10:01 20 meq Q2H LATIA Administration Protocol Multivit/Folic Acid/Iron 1 tab 11/19/24 09:00 11/20/24 08:09 Vitamin Tablet PO 1 tab DAILY LATIA Administration Prochlorperazine Edisylate 10 mg 11/18/24 17:58 Prochlorperazine 10 Mg/2 Ml Vial IVP Q6HR PRN Nausea / Vomiting Sodium Chloride 10 ml 11/18/24 17:58 Sodium Chloride Flush 0.9% 10 Ml Syringe IVP PRN PRN NEEDED PER PROVIDER ORDERS Sodium Chloride 10 ml 11/18/24 17:58 11/20/24 08:09 Sodium Chloride Flush 0.9% 10 Ml Syringe IVP 10 ml 0100,0900,1700 LATIA Administration Thiamine HCl 100 mg 11/19/24 09:00 11/20/24 08:09 Thiamine 100 Mg Tablet PO 100 mg DAILY LATIA Administration Objective Vital Signs/Intake & Output Vital Signs: Vital Signs x48h Pulse Resp BP Pulse Ox O2 Flow Rate 11/20/24 08:00 85 22 122/80 97 11/20/24 07:00 82 25 H 119/65 96 1 11/20/24 06:00 24 122/63 94 1 11/20/24 05:00 27 H 118/58 L 97 1 11/20/24 04:00 80 25 H 110/55 L 96 1 11/20/24 03:00 81 30 H 114/56 L 95 1 11/20/24 02:00 81 33 H 109/57 L 95 1 11/20/24 01:00 80 30 H 106/51 L 95 1 Intake & Output: Intake & Output 11/17/24 11/18/24 11/19/24 11/20/24 23:59 23:59 23:59 23:59 Intake Total 3225.2 / 3225.2 2764.2 / 2764.2 151 / 151 Output Total 200 / 200 200 / 200 Balance 3225.2 / 3225.2 2564.2 / 2564.2 -49 / -49 Weight (kg) 88 kg Lab Results 11/20/24 04:40 11/20/24 04:40 Other Labs: Lab Results x24hrs 11/20/24 11/20/24 11/20/24 Range/Units 04:40 04:40 04:40 WBC 12.3 H (4.8-10.8) x10^3/uL RBC 2.62 L (4.20-5.40) 10^6/uL Hgb 9.1 L (12.0-16.0) g/dL Hct 28.7 L (37.0-47.0) % MCV 109.5 H (81.0-99.0) fL MCH 34.7 H (27.0-31.0) pg MCHC 31.7 L (32.0-36.0) g/dL RDW 16.2 H (12.0-15.0) % Plt Count 360 (130-450) 10^3/uL MPV 9.2 (7.9-10.8) fL Neut # (Auto) Not Reportable Lymph # (Auto) Not Reportable [place] # (Auto) Not Reportable Eos # (Auto) Not Reportable Baso # (Auto) Not Reportable Absolute Nucleated RBC Not Reportable Total Counted 100 Band Neuts % (Manual) 0 (0 - 10) % Abnorm Lymph % (Manual) 0 % Metamyelocytes % 1 H ( - 0) % Myelocytes % 2 H ( - 0) % Nucleated RBC % Not Reportable Neutrophils # (Manual) 9.6 H (1.5-6.6) 10^3/uL Lymphocytes # (Manual) 1.1 L (1.5-3.5) 10^3/uL Monocytes # (Manual) 0.7 (0.0-1.0) 10^3/uL Eosinophils # (Manual) 0.5 (0-0.7) 10^3/uL Basophils # (Manual) 0.0 (0-0.1) 10^3/uL Differential Comment MANUAL DIFFERENTIAL WBC Morphology NORMAL APPEARANCE (NORMAL) Platelet Estimate NORMAL (130-450,000) (NORMAL) Platelet Morphology NORMAL APPEARANCE (NORMAL) RBC Morph Micro Appear 1+ MACROCYTOSIS 1+ STOMATOCYTES 1+ POLYCHROMASIA (NORMAL) VBG pH 7.418 H (7.31-7.41) Ionized Calcium 1.08 L (1.15-1.33) mmol/L Sodium 139 (135-145) mmol/L Potassium 3.4 L (3.5-4.5) mmol/L Chloride 108 (101-111) mmol/L Carbon Dioxide 23 (21-32) mmol/L Anion Gap 8.0 (6-13) BUN 4 L (6-20) mg/dL Creatinine 0.6 (0.6-1.3) mg/dL Estimated GFR (MDRD) 122 (>89) Glucose 89 (74-104) mg/dL Calcium 7.7 L (8.5-10.3) mg/dL Phosphorus 3.4 (2.5-5.0) mg/dL Magnesium 1.8 (1.7-2.3) mg/dL Assessment/Plan Problem List (1) Alcohol withdrawal: Qualifiers: Complication of substance-induced condition: uncomplicated Qualified Code(s): F10.930 - Alcohol use, unspecified with withdrawal, uncomplicated (2) Opiate addiction: (3) Hypomagnesemia: (4) Hypokalemia: (5) Elevated bilirubin:
[2024-11-20 12:16] VITALS: O2SAT 97
--- NOTE | 2024-11-20 12:59 | Discharge Summary ---
"Discharge Summary Admit Date: 11/18/24 Discharge Date: 11/20/24 Discharging Provider: Sharri Thompson PA-C Primary Care Provider: none- patient has been given resources Code Status: Attempt Resuscitation DIAGNOSES Discharge Diagnoses with Status of Each Condition: Alcohol withdrawal, treated Opiate addiction, quiescent Hypomagnesemia, repleted and resolved Hypokalemia, repleted and resolved Elevated bilirubin, decreasing needs follow-up HPI History of Present Illness: Presents to the emergency department about 12 hours prior to my encounter with her with complaints of not being able to ambulate. She was admitted for detox on November 16 for treatment of her alcohol and opioid addictions. Has not used alcohol since the . According to the emergency department encounter at the time of her initial presentation she had been on CIWA with a most recent CIWA score of 2. In any event here in the emergency department she is confabulating. She is oriented to person place and time but does not answer questions directly or correctly. For instance when I ask her where she lives and who she lives with she tells a story about moving to [place] and then moving back. She states she lives with her mother and her 5-year-old daughter here on the [place] CONSULTS | PROCEDURES Procedures: CT head: No acute intracranial pathology MRI brain: Highly limited study without sirisha acute intracranial abnormality HOSPITAL COURSE Hospital Course: 24-year-old female with a history of alcoholism and opiate use disorder presented to the emergency department with unsteadiness on her feet which has been going on for several days. She had not had a drink since 14 November. She was admitted to detox in the outpatient environment but unfortunately had these neurological's changes which necessitated evaluation in the emergency department. She was admitted with CIWA's into the 20s. She was therefore put in the ICU where she received Librium and Ativan as needed unfortunately her symptoms escalated and she required a Precedex drip. Her symptoms de-escalated and we were able to wean her off of the Precedex drip and off of wrist restraints. By hospital day 3 there was family at the bedside. The patient was alert and oriented she had weaned off Precedex and was not requiring IV push Ativan. Her symptoms were stable on Librium. She was seen by social work and given recovery resources for the outpatient environment. She was also instructed to obtain primary care in the community. With regards to her opiate use disorder I checked the PDMP report and I do not see Suboxone prescriptions for the last 2 years. She states she occasionally shoots up heroin. I do not see an indication to start her on Suboxone from the hospital but would encourage her to pursue recovery resources With regard to her hypomagnesemia this was repleted and resolved. She did develop some hypokalemia while here IV repletion was too uncomfortable and caused her agitation with her withdrawal to escalate we therefore de- escalated to oral replacement and she did well with a potassium of 3.4 prior to discharge. She has had elevated bilirubin in her labs her AST has been elevated at 166 on admission ALT has been within normal limits. Would recommend outpatient workup of this she has had a right upper quadrant ultrasound which was negative for biliary ductal dilatation. She is status postcholecystectomy. ALLERGIES Allergies Allergy/AdvReac Type Severity Reaction Status Date / Time No Known Drug Allergies Allergy Verified 11/18/24 02:59 MEDICATIONS Ambulatory Orders Medication Instructions Recorded Confirmed acetaminophen 500 mg tablet 1,000 mg PO Q6H PRN fever or pain 11/18/24 11/18/24 bisacodyl 5 mg tablet 5 - 15 mg PO DAILY PRN constipation 11/18/24 11/18/24 bismuth subsalicylate 262 mg 2 tab PO Q2H PRN diarrhea 11/18/24 11/18/24 chewable tablet (Bismuth) calcium carbonate 500 - 1,000 mg PO DAILY PRN 11/18/24 11/18/24 dyspepsia ibuprofen 200 mg tablet (Advil) 600 mg PO Q6HR PRN fever or pain 11/18/24 11/18/24 vitamin B complex (Vitamins B 1 tab PO DAILY 11/18/24 11/18/24 Complex tablet) chlordiazepoxide HCl 25 mg capsule 50 mg (2 x 25 mg) PO UD #20 caps 11/20/24 hydroxyzine pamoate 50 mg capsule 50 mg PO Q6HR PRN anxiety #20 caps 11/20/24 11/18/24 thiamine mononitrate (vit B1) 100 100 mg PO DAILY #30 tabs 11/20/24 mg tablet PHYSICAL EXAM AT DISCHARGE General Appearance: positive No acute distress and Alert Eyes Bilateral: positive Normal inspection ENT: positive ENT inspection nml Neck: positive Nml inspection Respiratory: positive No respiratory distress and Breath sounds nml Cardiovascular: positive Regular rate & rhythm Abdomen: positive No distention Skin: positive Color nml and No rash Extremities: positive Non-tender and No pedal edema Neurologic/Psychiatric: positive Oriented x3 LABS 11/20/24 04:40 11/20/24 04:40 FOLLOW UP Follow Up: PC follow-up in the community. Patient was given list of resources. She was given the number to call if she wants the [facility] primary care appointment. Follow-up with recovery resources given to her by social work. TIME SPENT Time Spent in Discharge (Minutes): 45 Discharge Plan Discharge Patient Disposition: Home, Self Care Prescriptions: New chlordiazepoxide HCl 25 mg Capsule 50 mg PO UD Qty: 20 0RF Rx Instructions: Take 50mg every 6 hours for one day, take 50mg every 8 hours for one day, take 50mg every 12 hours for one day, then 50mg at bedtime on the last day thiamine mononitrate (vit B1) 100 mg Tablet 100 mg PO DAILY Qty: 30 0RF Continued vitamin B complex [Vitamins B Complex] Tablet 1 tab PO DAILY acetaminophen 500 mg tablet 1,000 mg PO Q6H PRN (Reason: fever or pain) bisacodyl 5 mg tablet 5 - 15 mg PO DAILY PRN (Reason: constipation) bismuth subsalicylate [Bismuth] 262 mg tablet,chewable 2 tab PO Q2H PRN (Reason: diarrhea) Rx Instructions: do not exceed 16 tabs per 24 hrs calcium carbonate 500 mg calcium (1,250 mg) tablet,chewable 500 - 1,000 mg PO DAILY PRN (Reason: dyspepsia) ibuprofen [Advil] 200 mg tablet 600 mg PO Q6HR PRN (Reason: fever or pain) hydroxyzine pamoate 50 mg capsule 50 mg PO Q6HR PRN (Reason: anxiety) Qty: 20 0RF Patient Comments: for withdrawals Discontinued gabapentin 300 mg capsule 300 mg PO TID Patient Comments: for withdrawals multivitamin [Daily Multi-Vitamin] Tablet 1 tab PO DAILY clonidine HCl 0.1 mg tablet 0.1 mg PO Q4H PRN (Reason: anxiety) Patient Comments: for withdrawals dicyclomine 10 mg capsule 10 mg PO QID PRN (Reason: abdominal pain) docusate sodium [Colace] 100 mg capsule 100 mg PO BID PRN (Reason: constipation) loperamide [Imodium A-D] 2 mg capsule 2 mg PO Q2H PRN (Reason: loose stool) Rx Instructions: until patient has gone 12 hours without a bowel movement lorazepam [Ativan] 1 mg tablet 1 mg PO Q4H PRN (Reason: alcohol withdrawal) melatonin 10 mg capsule 10 mg PO HS PRN (Reason: sleep) methocarbamol 750 mg tablet 750 mg PO Q6HR PRN (Reason: spasms) ondansetron 4 mg tablet,disintegrating 4 mg PO Q8H PRN (Reason: nausea and vomiting) promethazine 12.5 mg tablet 12.5 mg PO TID PRN (Reason: nausea and vomiting) Rx Instructions: 3 doses during day; last dose no later than 4 hr before bedtime trazodone 50 mg tablet 50 - 100 mg PO HS PRN (Reason: insomnia) Activity Restrictions: No Restrictions Diet: Regular Health Concerns: You are a 24-year-old female who was trying to detox from alcohol. Unfortunately at the detox center you became very weak more unable to stand up on your own therefore you came to the hospital. Since you have been in the hospital you got multiple medications to help you detoxify from alcohol. There was no other problem found aside from your body trying to get off of the alcohol. Since you have been here you are much better. You are eating and drinking and able to walk although you are weak. We recommend that you use a walker until you are a little bit more steady on your feet. I am prescribing some medication to help you continue to deal with your withdrawal symptoms. The worst of them are over. I want you to take a medication called Librium we have started this in the hospital. The prescription is written so that each day you will take 1 dose less of medication until you are taking none. It is only over 4 days but this is much as you need to get your body off of the alcohol. This does not mean that you do not need to seek recovery resources. You need to be in a recovery program to help deal with the issues that your brain has with substances. You are a person who probably should not ever use any substances that have a tendency to be addictive. Recovery from substance use is a lifelong process that you will need to engage yourself in. There are many people who have recovered from substance addiction and have done very very well in life and you can be 1 of these people. We recommend that you establish primary care. There are many providers in the [employer] system that are excepting patients and locations that will be convenient to you. The number to call is [phone]. This is a call center you will have to wait on hold but you can get an appointment. In addition to the medication to help with alcohol withdrawal, you need to take some vitamins to help your body get better. vitamins without iron have a lot of good things in the. The reason I recommend not taking iron is that it can be constipating and you probably do not need it. Additionally taking a B complex vitamin [id number] can be very helpful. Care Plan Goals: Stop drinking alcohol Keep your body healthy Take vitamins to keep your body healthy Liver function tests in 6 weeks or so to follow-up and make sure your liver is recovering Assessment: Alcohol withdrawal, treated. Plan of Treatment: Establish PCP access Inters[facility]stance abuse recovery program Print Language: Ecuadorean Patient Instructions: Addiction Alcohol"
[2024-11-20 13:24] VITALS: BP 102/58
== END 2024-11-20 13:57 | disposition home or self-care (01) | DRG 897 ==
LOC: ED 02:41 → ICU 17:32
PROVIDERS: ADMIT Physician Assistant Medical; ATTEND Physician Assistant Medical

== ENCOUNTER 2025-08-27 12:41 | Inpatient (IN) ==
--- NOTE | 2025-08-27 12:39 | ED Physician Documentation ---
History of Present Illness Stated complaint Stated Complaint: OD Chief complaint Chief Complaint: General History obtained from History obtained from: Patient and EMS Additonal information Additional information: She has a history of opiate use in remission, but does use daily cocaine. Today she was using cocaine with some friends and evidently it was spiked with something, presume fentanyl. She became unresponsive and bystanders administered Narcan. On EMS arrival she had sonorous respirations with GCS of 3. An IO was placed in the right tibia and she was given IV Narcan and is now mentating normally and has no complaints. She declines to talk to social work. Meds/Allgy Home Medications Ambulatory Orders Medication Instructions Recorded Confirmed acetaminophen 500 mg tablet 1,000 mg PO Q6H PRN fever or pain 11/18/24 02/20/25 ibuprofen 200 mg tablet (Advil) 600 mg PO Q6HR PRN fev er or pain 11/18/24 02/20/25 acyclovir 400 mg tablet 400 mg PO TID HSV 5 days #30 tabs 02/28/25 02/28/25 ferrous sulfate 137 mg (45 mg 137 mg PO BID Anemia #60 tabs 02/28/25 02/28/25 iron) tablet,extended release (Slow Fe) No Known Home Medications 08/27/2508/09 Allergies Allergies Allergy/AdvReac Type Severity Reaction Status Date / Time No Known Drug Allergies Allergy Unverified 08/27/25 12:40 PFSH Active Problems All Active Problems (Updated 08/27/25 @ 15:34 by David Mars MD) Respiratory failure (Acute) Accidental fentanyl overdose (Acute) Elevated blood pressure reading without diagnosis of hypertension (Acute) Anemia (Acute) 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) Encounter for health-related screening (Acute) Depression (Acute) Recurrent herpes labialis (Acute) Drug abuse counseling and surveillance of drug abuser (Acute) Anxiety (Acute) Keratosis pilaris (Acute) Encounter for screening for malignant neoplasm of cervix (Acute) Dysuria (Acute) IUD contraception (Acute) Opiate addiction (Acute) Elevated bilirubin (Acute) Alcohol withdrawal (Acute) Medical History Medical History (Updated 08/27/25 @ 15:34 by David Mars MD) Hematuria Social History Social History (Updated 02/20/25 @ 11:26 by ZAHRAA CHAMBERLAIN LPN) Number of Years Smoked: 9 Second hand tobacco smoke exposure: No Do you dip or chew tobacco?: No Do you vape?: Yes Living arrangement: At home Living Condition: With family Support Person: Yes Level: Independent Do you feel safe in your home environment?: Yes History of physical, verbal, emotional, or financial abuse?: No ETOH Use: None Frequency: Weekly Substance Use Details: stopped opiods 6 months ago Are you sexually active?: Yes Sexual Practice Notes: [facility] Exam Vital Signs: Vital Signs x48h Temp Pulse Resp BP Pulse Ox O2 Flow Rate 08/27/25 15:05 91 L 3 08/27/25 15:00 3 08/27/25 14:32 114 H 95 2 08/27/25 14:28 117 H 23 71 L 08/27/25 13:39 115 H 24 122/84 93 2 08/27/25 12:48 2 08/27/25 12:40 36.1 C L 127 H 20 144/114 H 94 2 Constitutional normal general appearance and no apparent distress Eyes PERRL Respiratory breath sounds equal bilaterally, normal respiratory effort and clear to auscultation bilaterally Cardiovascular normal heart rate noted, regular rhythm noted and no murmur Gastrointestinal abdomen soft to palpation and nontender to palpation Results Vitals Vitals: Vital Signs - 24 hr 08/27/25 12:40 08/27/25 12:48 08/27/25 13:39 Temperature 36.1 C L Temperature Source Temporal Artery Scan Pulse Rate 127 H 115 H Respiratory Rate 20 24 Blood Pressure 144/114 H 122/84 O2 Saturation 94 93 Oxygen Delivery Method Nasal Cannula O2 Source Nasal cannula Nasal cannula If not protocol: Oxygen Flow, liters/minute 2 2 2 Pain Intensity 2 0 08/27/25 14:28 08/27/25 14:32 08/27/25 15:00 Temperature Temperature Source Pulse Rate 117 H 114 H Respiratory Rate 23 Blood Pressure O2 Saturation 71 L 95 Oxygen Delivery Method Nasal Cannula O2 Source Room air Nasal cannula If not protocol: Oxygen Flow, liters/minute 2 3 Pain Intensity 0 0 08/27/25 15:05 Temperature Temperature Source Pulse Rate Respiratory Rate Blood Pressure O2 Saturation 91 L Oxygen Delivery Method O2 Source Nasal cannula If not protocol: Oxygen Flow, liters/minute 3 Pain Intensity Oxygen O2 Source Nasal cannula Labs Labs: Laboratory Tests 08/27/25 14:58 WBC 9.5 RBC 4.41 Hgb 14.6 Hct 45.3 MCV 102.7 H MCH 33.1 H MCHC 32.2 RDW 13.7 Plt Count 322 MPV 8.8 Neut # (Auto) 6.7 H Lymph # (Auto) 1.7 [place] # (Auto) 0.9 Eos # (Auto) 0.1 Baso # (Auto) 0.1 Absolute Nucleated RBC 0.00 Nucleated RBC % 0.0 VBG pH 7.378 VBG pCO2 45.9 VBG pO2 88.7 H VBG HCO3 27.3 VBG Total CO2 28.7 VBG O2 Saturation 97.0 H VBG Base Excess 1.9 Sodium 139 Potassium 3.8 Chloride 101 Carbon Dioxide 29 Anion Gap 9.0 BUN 8 Creatinine 0.8 Estimated GFR (MDRD) 87 L Glucose 111 H Calcium 8.6 Total Bilirubin 0.3 AST 238 H ALT 180 H Alkaline Phosphatase 104 Total Protein 8.2 Albumin 4.5 Globulin 3.7 Albumin/Globulin Ratio 1.2 Rads (name of study) Single view chest x-ray is unremarkable: Relevant Findings:: Final report received and EMP independent interpretation of test PD Medical Decision Making ED course ED course: 25-year-old woman was obtunded after using cocaine so send that was adulterated with fentanyl. She has improved now with normal mental status on arrival after prehospital Narcan, both nasal and IV through intraosseous line in the right tibia. On arrival she did have an oxygen requirement and she was observed for couple of hours and the oxygen requirement persisted despite normal mental status. As such I shot a chest x-ray and will try to get some labs and a peripheral IV with a venous blood gas. Peripheral IV placement was successful by the RN and I removed her right tibial IO around 3 PM. Venous blood gas was relatively normal. CBC unremarkable. CMP demonstrating elevation in liver enzymes which is not necessarily acute looking at old labs. She certainly at risk for hepatitis C and/or fatty liver. Still requiring about 3 L of oxygen and decision to admit was made at 3:30 PM. Call to the hospitalist with no answer, I will try again shortly. Spoke with ACACIA Thompson for admission at 3:42 PM. Discharge Plan Discharge Patient Disposition: ED Place in Observation Condition: Fair Clinical Impression: Accidental fentanyl overdose, Respiratory failure Prescriptions: No Action acetaminophen 500 mg tablet 1,000 mg PO Q6H PRN (Reason: fever or pain) ibuprofen [Advil] 200 mg tablet 600 mg PO Q6HR PRN (Reason: fever or pain) No Known Home Medications acyclovir 400 mg tablet 400 mg PO TID 5 Days Qty: 30 4RF Rx Instructions: Increase water intake Slow Fe 137 mg (45 mg iron) tablet extended release 137 mg PO BID Qty: 60 4RF Activity Restrictions/Additional Instructions: You were seen today because you are using cocaine and then became unresponsive. This likely means that the cocaine was adulterated with fentanyl. We have given you extra Narcan. We think you would benefit from admission for detoxification and/or rehabilitation from alcohol and/or drugs. The closest facility that does this is in [place]. It is: [facility] [address] [address] Call them at [phone] to arrange an intake appointment. Print Language: Bahraini Patient Instructions: Opioid Overdose Naloxone ... Stand Alone Forms: PCP List
[~2025-08-27 12:41] MED LIST: NALOXONE HCL NASAL SPRAY KIT NAS PRN
--- OUTSIDE RECORDS SUMMARY | 2025-08-27 13:10 | EXTERNAL MEDICAL SUMMARY RPT | Continuity of Care Document ---
Author Organization [facility] Address [address] [place] [address] [address] [place] [address] Phone Problems date description facility 2025-07-26 11:52 Hypomagnesemia [facility] 2025-07-26 11:52 Hypokalemia [facility] 2025-07-26 11:52 Alcohol dependence with withdra wal, unspecified [facility] 2025-07-26 11:52 Alcohol use, unspeci fied with withdrawal, uncomplicated [facility] 2025-07-26 11:52 Opioid dependence, uncomplicate d [facility] 2025-07-26 11:52 [facility] Social History date description facility
--- NOTE | 2025-08-27 14:58 | XRAY Report ---
PROCEDURE: XR Chest 1V INDICATIONS: Hypoxemia TECHNIQUE: One view of the chest was acquired. COMPARISON: None. FINDINGS: Surgical changes and devices: None. Lungs and pleura: No pleural effusions or pneumothorax. No consolidation. Mediastinum: Mediastinal contours appear normal. Heart size is normal. Bones and chest wall: No suspicious bony lesions. Overlying soft tissues appear unremarkable. IMPRESSION: No acute cardiopulmonary process. Reviewed by: Bandar Pierce MD on 08/27/2025 2:55 PM PDT Approved by: Bandar Pierce MD on 08/27/2025 2:55 PM PDT Station ID: [id number]
[2025-08-27 15:04] LABS: HCT - HEMATOCRIT 45.3 % (37.0-47.0); HGB - HEMOGLOBIN 14.6 g/dL (12.0-16.0); MEAN PLATELET VOLUME 8.8 fL (7.9-10.8); NRBC ABSOLUTE COUNT (AUTO) 0.00 x10^3/uL; NUCLEATED RED BLOOD CELLS AUTO 0.0 /100WBC; PLT - PLATELET COUNT 322 10^3/uL (130-450); RED CELL DISTRIBUTION WIDTH 13.7 % (12.0-15.0)
[2025-08-27 15:08] LABS: VBG BASE EXCESS 1.9 mmol/L (-2 - +2); VBG PCO2 45.9 mmHg (41-51); VBG PH 7.378 (7.31-7.41); VBG PO2 88.7 mmHg (25-47); VBG TOTAL CO2 28.7 mmol/L (24-29)
[2025-08-27 15:21] LABS: ALT ALANINE AMINOTRANSFERASE 180.0 IU/L (10-60); AST ASPARTATE AMINOTRANSFERASE 238.0 IU/L (10-42); BUN - BLOOD UREA NITROGEN 8.0 mg/dL (6-20); CARBON DIOXIDE - CO2 29.0 mmol/L (21-32); CREATININE 0.8 mg/dL (0.6-1.3); GFR - MDRD 87.0 (>89)
--- NOTE | 2025-08-27 16:09 | HISTORY & PHYSICAL EXAMINATION ---
Chief Complaint Chief Complaint Chief Complaint: unresponsive History of Present Illness Admitted From Admitted From:: home History Obtained From Records Reviewed: post hospitalization, PCP note February 2025 History obtained from: patient History of Present Illness HPI Comment/Other: 25-year-old female who presents to the emergency department via EMS for overdose. She states she was using cocaine with some friends. She was snorting it. And then became unresponsive. She states that she does not use cocaine every day, only on special occasions. Today was a special occasion. She also drinks alcohol every day, last use was today. smokes about 1 cigarette a day and vapes nicotine "a lot".Denies marijuana use. She was administered Narcan by bystanders but had sonorous respirations on EMS arrival with the GCS of 3. She was given IV Narcan through an IO in the right tibia, then became responsive. She states she has been feeling well recently. she has not been sick. She does have a cold sore on her lip. But otherwise is doing fine. No fevers no cough no chest pain. She has a history of alcohol and narcotics addictions. And she is not clean from these today. I am asked to admit her for persistent hypoxia. She is on 2 to 3 L in the ED. I did her turn her down to room air in the emergency department her oxygen saturation went down to 82% and she became cyanotic, although she was mentating relatively normally. Socially she continues to use multiple substances. She does not have a stable living environment at the current time. She is staying with friends. Meds/Allgy Home Medications Ambulatory Orders Medication Instructions Recorded Confirmed acetaminophen 500 mg tablet 1,000 mg PO Q6H PRN fever or pain 11/18/24 02/20/25 ibuprofen 200 mg tablet (Advil) 600 mg PO Q6HR PRN fev er or pain 11/18/24 02/20/25 acyclovir 400 mg tablet 400 mg PO TID HSV 5 days #30 tabs 02/28/25 02/28/25 ferrous sulfate 137 mg (45 mg 137 mg PO BID Anemia #60 tabs 02/28/25 02/28/25 iron) tablet,extended release (Slow Fe) No Known Home Medications 08/27/25 10/2 Allergies Allergies Allergy/AdvReac Type Severity Reaction Status Date / Time No Known Drug Allergies Allergy Unverified 08/27/25 12:40 PFSH Active Problems All Active Problems (Updated 08/27/25 @ 17:29 by ACACIA Martinez) Alcohol dependence (Acute) Transaminitis (Acute) Respiratory failure (Acute) Accidental fentanyl overdose (Acute) Elevated blood pressure reading without diagnosis of hypertension (Acute) Anemia (Acute) 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) Encounter for health-related screening (Acute) Depression (Acute) Recurrent herpes labialis (Acute) Drug abuse counseling and surveillance of drug abuser (Acute) Anxiety (Acute) Keratosis pilaris (Acute) Encounter for screening for malignant neoplasm of cervix (Acute) Dysuria (Acute) IUD contraception (Acute) Opiate addiction (Acute) Elevated bilirubin (Acute) Alcohol withdrawal (Acute) Medical History Medical History (Updated 08/27/25 @ 17:29 by ACACIA Martinez) Hematuria Social History Social History (Updated 08/27/25 @ 16:51 by ACACIA Martinez) Smoking Status: Current every day smoker Number of Years Smoked: 9 Second hand tobacco smoke exposure: No Do you dip or chew tobacco?: No Do you vape?: Yes Patient requests smoking cessation consult: No Initiate information on smoking cessation: No Living arrangement: Homeless Living Condition: With family Support Person: Yes Level: Independent Do you feel safe in your home environment?: Yes History of physical, verbal, emotional, or financial abuse?: No Frequency: Daily Substance Use: crack/cocaine Are you sexually active?: Yes Sexual Practice Notes: Ryderphilip placed 10/07/2020 [facility] 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 HENMT normocephalic, head/scalp atraumatic, hearing grossly normal bilaterally and external ears normal Off oxygen has a bluish tinge around her lips. Eyes conjunctivae normal Neck/C-Spine trachea midline Lymph no lymphadenopathy noted Chest inspection of chest normal Respiratory normal respiratory effort and no use of accessory muscles Rhonchi mid lung montaño on the right. Cardiovascular regular rhythm noted Tachycardic Gastrointestinal abdomen soft to palpation Back/Pelvis spine normal to inspection Extremities normal to inspection Neurology no movement abnormality noted and GCS 15 Psychiatry mental status grossly normal, oriented x3 and thought process normal Skin skin color normal Conclusion/Plan Problem List (1) Respiratory failure: Plan: Persistent hypoxemia following accidental overdose today. I turned off the patient's oxygen in the emergency room myself and watched her desaturate to 82% on room air. At the time that she desaturated she had a bluish tinge of her lips and around her lips. Her mental status appeared and was normal. She was not somnolent. She has been feeling well recently has not had any coughs or colds. Her VBG shows elevated oxygen of 88.7. With a saturation of 97%. Other values are normal. Her chest x-ray is read as no acute pulmonary process, however after reviewing the film myself I would say that her mediastinum is wide and there is some blurring at the left heart border. The widened mediastinum could be right sided hilar lymphadenopathy although the film is slightly rotated. I am requesting a CT of the chest. Today, she inhaled what she thought was cocaine powder through her nose. She did not smoke anything. She states she smokes about 1 cigarette a day but vapes nicotine quite often. She does not use cannabis. She also drinks daily, her last alcoholic beverage was today. When I asked her if she thought she with withdrawal from alcohol she said certainly. Will treat her acute hypoxic respiratory failure with oxygen replacement. I am unsure if she ingested additional substances today. Medical urine drug screen is pending. Alcohol level is pending.This patient has a longstanding history of anemia. I have also ordered a respiratory PCR panel. She states she feels well but then she also is telling me that she is developing a cold sore on her lip. Which makes me wonder if she is coming down with other things. Discussed with Dr. Mars in the emergency department decision was made to admit this patient to observation status for hypoxic respiratory failure which is persistent after several hours of treatment in the emergency department. (2) Accidental fentanyl overdose: Plan: This patient is assumed to have an accidental fentanyl overdose after nasally inhaling cocaine. Medical urine drug screen was not done in the emergency department. I have ordered this. I have also ordered a fentanyl screen. Elevated oxygen on VBG could be related to supplemental oxygen at the bedside or it could be due to methemoglobinemia which could be related to substances and the presumed cocaine powder that she inhaled today. Although she is showing low oxygen sat on pulse ox, so not likely. Checking caroboxy hemoglobin panel. If this hyoxia is related to today's OD, I expect that she will metabolize and improve despite the cause. (3) Anemia: Plan: Her hemoglobin is normal today. This is very unusual for this patient. It makes me wonder if she is dehydrated. She still shows a macrocytosis which could be related to her alcohol use. (4) Transaminitis: Plan: Long longstanding transaminitis looking back through her chemistry panel she has had elevated transaminases in the past. Likely related to daily alcohol use. Primary care has suggested that she have hepatitis panel done. She has not had this done. I will send hepatitis panel with a.m. labs. (5) Alcohol dependence: Plan: She does not appear to be in withdrawal at this time. She is alert and oriented. She has no tremors. She is not sweating. She does have tachycardia, but she has ingested cocaine today. She is also mildly hypertensive but once again she has ingested cocaine today. Plan I have spent 90 minutes in the care of this patient today. This includes time [id number], review and ordering of diagnostic imaging and laboratory studies and consultation with other providers. Monitoring the patient's signs symptoms, evaluation of medication effectiveness and patient's response to treatment. Lab Results Lab results reviewed: Yes 08/27/25 14:58 08/27/25 14:58 Diagnostic Imaging Results Diagnostic Imaging Results: positive Final report reviewed and Read independently Diagnostic Imaging Results Comments: See my comments above about chest x-ray
[2025-08-27] MEDS ORDERED: ONDANSETRON 4 MG/2 ML VIAL IVP PRN (16:57)
[2025-08-27] MEDS ORDERED: ACETAMINOPHEN 325 MG TABLET PO PRN (16:57)
[2025-08-27] MEDS ORDERED: oxyCODONE 5 MG TABLET PO PRN (16:57)
[2025-08-27] MEDS ORDERED: SODIUM CHLORIDE FLUSH 0.9% 10 ML SYRINGE IVP PRN (16:57)
--- NOTE | 2025-08-27 17:23 | CT Report ---
PROCEDURE: CT Chest WO INDICATIONS: PERSISTENT HYPOXIA TECHNIQUE: A CT scan of the chest was performed. Intravenous contrast media was not administered. Images were recorded and evaluated at appropriate window settings. Reformats: axial MIP of the chest, coronal and sagittal. For radiation dose reduction, the following was used: automated exposure control, adjustment of mA and/or kV according to patient size. COMPARISON: None. FINDINGS: Image quality: Diagnostic. Chest wall and lower neck: No thyroid nodule which requires sonographic follow up. No axillary or supraclavicular adenopathy by size. Lungs and pleura: No consolidation. No pleural effusions. No pneumothorax. No suspicious pulmonary nodules which require follow up. Mediastinum: Heart size is normal. No pericardial effusion. No large vessel abnormality. No mediastinal adenopathy by size criteria. The esophagus is distended with fluid. Bones: No aggressive osseous abnormality. Upper Abdomen: Hepatic steatosis. IMPRESSION: No acute abnormality. The esophagus is distended with fluid, likely moderate reflux. Reviewed by: Burt Hammonds MD on 08/27/2025 5:19 PM PDT Approved by: Burt Hammonds MD on 08/27/2025 5:19 PM PDT Station ID: [id number]
[2025-08-27 17:47] LABS: HEMOGLOBIN TOTAL, VENOUS WB 15.0 g/dL (12.0-15.6); OXYHEMOGLOBIN, VENOUS 97 % (94-97)
[2025-08-27 17:48] LABS: CARBOXYHEMOGLOBIN VENOUS 2.2 % (0-1.5); METHEMOGLOBIN VENOUS 0.3 % (<0.3-1.5)
[2025-08-27] MEDS: NICOTINE 21 MG PATCH TOP SCH (17:56)
[2025-08-27 17:59] LABS: AMPHETAMINE SCREEN,URINE NEGATIVE (NEGATIVE); BARBITURATE SCREEN,UR NEGATIVE (NEGATIVE); BENZODIAZEPINES SCREEN, URINE NEGATIVE (NEGATIVE); BUPRENORPHINE SCREEN, URINE NEGATIVE (NEGATIVE); COCAINE SCREEN URINE POSITIVE (NEGATIVE); METHADONE SCREEN, URINE NEGATIVE (NEGATIVE); METHAMPHETAMINES SCREEN, URINE POSITIVE (NEGATIVE); OPIATE SCREEN, URINE NEGATIVE (NEGATIVE); THC CANNABINOID SCREEN, URINE NEGATIVE (NEGATIVE)
[2025-08-27] MEDS: cefTRIAXone 1 GM VIAL IVP SCH (18:35)
[2025-08-27] MEDS: SODIUM CHLORIDE FLUSH 0.9% 10 ML SYRINGE IVP SCH (18:35)
[2025-08-27] MEDS: AZITHROMYCIN INJ 500 MG in SODIUM CHLORIDE 0.9% 250 ML IV SCH (18:35)
[2025-08-27] MEDS: ACYCLOVIR 200 MG CAPSULE PO SCH (18:36)
[2025-08-28 04:58] LABS: HCT - HEMATOCRIT 40.8 % (37.0-47.0); HGB - HEMOGLOBIN 13.1 g/dL (12.0-16.0); MEAN PLATELET VOLUME 8.9 fL (7.9-10.8); NRBC ABSOLUTE COUNT (AUTO) 0.00 x10^3/uL; NUCLEATED RED BLOOD CELLS AUTO 0.0 /100WBC; PLT - PLATELET COUNT 271 10^3/uL (130-450); RED CELL DISTRIBUTION WIDTH 13.6 % (12.0-15.0)
[2025-08-28 05:18] LABS: ALT ALANINE AMINOTRANSFERASE 151.0 IU/L (10-60); AST ASPARTATE AMINOTRANSFERASE 185.0 IU/L (10-42); BUN - BLOOD UREA NITROGEN 8.0 mg/dL (6-20); CARBON DIOXIDE - CO2 30.0 mmol/L (21-32); CREATININE 0.7 mg/dL (0.6-1.3); GFR - MDRD 101.0 (>89); PHOSPHORUS 4.1 mg/dL (2.5-5.0)
[2025-08-28] MEDS: MULTIVITAMIN 10 ML, THIAMINE INJ 100 MG, FOLIC ACID INJ 1 MG in SODIUM CHLORIDE 0.9% 1,... IV SCH (08:48)
[2025-08-28] MEDS: PRENATAL VITAMIN TABLET PO SCH (08:48)
[2025-08-28] MEDS: THIAMINE 100 MG TABLET PO SCH (08:48)
[2025-08-28] MEDS: ENOXAPARIN 40 MG/0.4 ML SYRINGE SUBQ SCH (08:49)
[2025-08-28 10:39] LABS: B. PARAPERTUSSIS- RESP PCR PAN NOT DETECTED; B. PERTUSSIS- RESP PCR PANEL NOT DETECTED; C. PNEUMONIAE- RESP PCR PANEL NOT DETECTED; CORONAVIRUS 229E-RESP PCR NOT DETECTED; CORONAVIRUS HKU1-RESP PCR NOT DETECTED; CORONAVIRUS NL63-RESP PCR NOT DETECTED; CORONAVIRUS OC43-RESP PCR NOT DETECTED; HUMAN METAPNEUMOVIRUS NOT DETECTED; INFLUENZA A- RESP PCR PANEL NOT DETECTED; INFLUENZA B - RESP PCR PANEL NOT DETECTED; M. PNEUMONIAE- RESP PCR PANEL NOT DETECTED; PARAINFLUENZA VIRUS 1 NOT DETECTED; PARAINFLUENZA VIRUS 2 NOT DETECTED; PARAINFLUENZA VIRUS 4 NOT DETECTED; RHINOVIRUS/ENTEROVIRUS NOT DETECTED; RSV- RESP PCR PANEL NOT DETECTED; SARS-CoV-2 -RESP PCR PANEL NOT DETECTED
--- NOTE | 2025-08-28 11:39 | PROVIDER PROGRESS NOTE ---
Subjective Prog Note Date Prog Note Date: 08/28/25 Subjective Subjective: remains hypoxic. She is feeling ok. not too uncomfortable with alcohol withdrawal, or nicotine needs. She has a nicoderm patch in place. She is upset because in the process of her acute event yesterday, her glasses became misplaced. Current Medications Current Medications Current Medications: Current Medications Generic Name Dose Route Start Last Admin Trade Name Freq PRN Reason Stop Dose Admin Acetaminophen 650 mg 08/27/25 16:57 Acetaminophen 325 Mg Tablet PO Q4HR PRN Pain 1 to 4, or Fever Acyclovir 200 mg 08/27/25 18:00 08/28/25 10:39 Acyclovir 200 Mg Capsule PO 200 mg 5XD LATIA Administration Ceftriaxone Sodium 1 gm 08/27/25 17:00 08/28/25 08:48 Ceftriaxone 1 Gm Vial IVP 1 gm DAILY LATIA Administration Enoxaparin Sodium 40 mg 08/28/25 09:00 08/28/25 08:49 Enoxaparin 40 Mg/0.4 Ml Syringe SUBQ Not Given DAILY LATIA Azithromycin 500 mg/ Sodium 250 mls @ 250 mls/hr 08/27/25 17:00 08/28/25 11:28 Chloride IV 250 mls/hr DAILY LATIA Administration Multivitamins 10 ml/ Thiamine 1,011.2 mls @ 100 mls/hr 08/28/25 09:00 08/28/25 11:28 HCl 100 mg/ Folic Acid 1 mg/ IV 08/28/25 21:00 100 mls/hr Sodium Chloride DAILY LATIA Infusion Lorazepam 1 mg 08/27/25 16:42 08/28/25 10:44 Lorazepam 1 Mg Tablet PO 1 mg Q1H PRN Administration CIWA > 8 Protocol Nicotine 1 patch 08/27/25 16:47 08/28/25 08:49 Nicotine 21 Mg Patch TOP Not Given DAILY LATIA Ondansetron HCl 4 mg 08/27/25 16:57 Ondansetron 4 Mg/2 Ml Vial IVP Q6HR PRN Nausea / Vomiting Oxycodone HCl 5 mg 08/27/25 16:57 Oxycodone 5 Mg Tablet PO Q4HR PRN Pain 5 to 7 Multivit/Folic Acid/Iron 1 tab 08/28/25 09:00 08/28/25 08:48 Vitamin Tablet PO 1 tab DAILY LATIA Administration Sodium Chloride 10 ml 08/27/25 16:57 Sodium Chloride Flush 0.9% 10 Ml Syringe IVP PRN PRN NEEDED PER PROVIDER ORDERS Sodium Chloride 10 ml 08/27/25 17:00 08/28/25 08:49 Sodium Chloride Flush 0.9% 10 Ml Syringe IVP 10 ml 0100,0900,1700 LATIA Administration Thiamine HCl 100 mg 08/28/25 09:00 08/28/25 08:48 Thiamine 100 Mg Tablet PO 100 mg DAILY LATIA Administration Objective Vital Signs/Intake & Output Reviewed Vital Signs: Yes Vital Signs: Vital Signs x48h Temp Pulse Resp BP Pulse Ox O2 Flow Rate 08/28/25 10:25 3 08/28/25 08:03 36.7 C 113 H 22 146/93 H 90 L 3 08/28/25 05:00 36.8 C 119 H 16 146/86 H 93 3 Intake & Output: Intake & Output 08/25/25 08/26/25 08/27/25 08/28/25 23:59 23:59 23:59 23:59 Intake Total 1950 / 1950 520 / 520 Output Total 400 / 400 75 / 75 Balance 1550 / 1550 445 / 445 Weight (kg) 102.5 kg 104.5 kg Objective General Appearance: positive No acute distress and Alert Eyes Bilateral: positive Normal inspection and Conjunctivae nml ENT: positive ENT inspection nml Neck: positive Nml inspection Respiratory: positive No respiratory distress, Breath sounds nml and Other (pulls >2500cc on IS); negative Wheezes, Rales or Rhonchi Cardiovascular: positive Regular rate & rhythm Abdomen: positive No distention Back: positive Nml inspection Skin: positive Color nml and Other (R tibial I/O site with some bloody drainage on bandaid. ) Extremities: positive Non-tender and Full ROM; negative Pedal edema Neurologic/Psychiatric: positive Oriented x3 Lab Results 08/28/25 04:41 08/28/25 04:41 Other Labs: Lab Results x24hrs 08/28/25 08/28/25 08/27/25 Range/Units 09:23 04:41 17:36 WBC 8.5 (4.8-10.8) x10^3/uL RBC 3.89 L (4.20-5.40) 10^6/uL Hgb 13.1 (12.0-16.0) g/dL Hct 40.8 (37.0-47.0) % MCV 104.9 H (81.0-99.0) fL MCH 33.7 H (27.0-31.0) pg MCHC 32.1 (32.0-36.0) g/dL RDW 13.6 (12.0-15.0) % Plt Count 271 (130-450) 10^3/uL MPV 8.9 (7.9-10.8) fL Neut # (Auto) 4.8 (1.5-6.6) 10^3/uL Lymph # (Auto) 2.5 (1.5-3.5) 10^3/uL [place] # (Auto) 1.0 (0.0-1.0) 10^3/uL Eos # (Auto) 0.1 (0.0-0.7) 10^3/uL Baso # (Auto) 0.1 (0.0-0.1) 10^3/uL Absolute Nucleated RBC 0.00 x10^3/uL Nucleated RBC % 0.0 /100WBC VBG pH (7.31-7.41) VBG pCO2 (41-51) mmHg VBG pO2 (25-47) mmHg VBG HCO3 (23-28) mmol/L VBG Total CO2 (24-29) mmol/L VBG O2 Saturation (60-80) % VBG Base Excess (-2 - +2) mmol/L VBG Oxyhemoglobin 97 (94-97) % VBG Carboxyhemoglobin 2.2 H (0-1.5) % VBG Methemoglobin 0.3 (<0.3-1.5) % Sodium 134 L (135-145) mmol/L Potassium 3.5 (3.5-4.5) mmol/L Chloride 95 L (101-111) mmol/L Carbon Dioxide 30 (21-32) mmol/L Anion Gap 9.0 (6-13) BUN 8 (6-20) mg/dL Creatinine 0.7 (0.6-1.3) mg/dL Estimated GFR (MDRD) 101 (>89) Glucose 80 (74-104) mg/dL Calcium 8.1 L (8.5-10.3) mg/dL Phosphorus 4.1 (2.5-5.0) mg/dL Magnesium 1.3 L (1.7-2.3) mg/dL Total Bilirubin 1.0 (0.2-1.0) mg/dL Direct Bilirubin 0.27 H (0.03-0.18) mg/dL AST 185 H (10-42) IU/L ALT 151 H (10-60) IU/L Alkaline Phosphatase 101 (42-121) IU/L Total Protein 7.7 (6.4-8.9) g/dL Albumin 4.2 (3.2-5.5) g/dL Globulin 3.5 (2.1-4.2) g/dL Albumin/Globulin Ratio (1.0-2.2) Nasal Adenovirus (PCR) NOT DETECTED Nasal B. parapertussis DNA (PCR) NOT DETECTED Nasal Coronavir 229E PCR NOT DETECTED Nasal Coronavir HKU1 PCR NOT DETECTED Nasal Coronavir NL63 PCR NOT DETECTED Nasal Coronavir OC43 PCR NOT DETECTED Nasal Enterovir/Rhinovir PCR NOT DETECTED Nasal Influenza B PCR NOT DETECTED Nasal Influenza A PCR NOT DETECTED Nasal Parainfluen 1 PCR NOT DETECTED Nasal Parainfluen 2 PCR NOT DETECTED Nasal Parainfluen 3 PCR NOT DETECTED Nasal Parainfluen 4 PCR NOT DETECTED Nasal RSV (PCR) NOT DETECTED Nasal B.pertussis DNA PCR NOT DETECTED Nasal C.pneumoniae (PCR) NOT DETECTED [place] Human Metapneumo PCR NOT DETECTED Nasal M.pneumoniae (PCR) NOT DETECTED Nasal SARS-CoV-2 (PCR) NOT DETECTED Urine Opiates Screen (NEGATIVE) Ur Buprenorphine Scrn (NEGATIVE) Ur Oxycodone Screen (NEGATIVE) Urine Methadone Screen (NEGATIVE) Urine Fentanyl Screen (NEGATIVE) Ur Barbiturates Screen (NEGATIVE) Ur Tricyclics Screen (NEGATIVE) Ur Phencyclidine Scrn (NEGATIVE) Ur Amphetamine Screen (NEGATIVE) U Methamphetamines Scrn (NEGATIVE) U Benzodiazepines Scrn (NEGATIVE) Urine Cocaine Screen (NEGATIVE) U Cannabinoids Screen (NEGATIVE) Ur Drug Screen Comment Ethyl Alcohol 120.1 mg/dL 08/27/25 08/27/25 Range/Units 15:30 14:58 WBC 9.5 (4.8-10.8) x10^3/uL RBC 4.41 (4.20-5.40) 10^6/uL Hgb 14.6 (12.0-16.0) g/dL Hct 45.3 (37.0-47.0) % MCV 102.7 H (81.0-99.0) fL MCH 33.1 H (27.0-31.0) pg MCHC 32.2 (32.0-36.0) g/dL RDW 13.7 (12.0-15.0) % Plt Count 322 (130-450) 10^3/uL MPV 8.8 (7.9-10.8) fL Neut # (Auto) 6.7 H (1.5-6.6) 10^3/uL Lymph # (Auto) 1.7 (1.5-3.5) 10^3/uL [place] # (Auto) 0.9 (0.0-1.0) 10^3/uL Eos # (Auto) 0.1 (0.0-0.7) 10^3/uL Baso # (Auto) 0.1 (0.0-0.1) 10^3/uL Absolute Nucleated RBC 0.00 x10^3/uL Nucleated RBC % 0.0 /100WBC VBG pH 7.378 (7.31-7.41) VBG pCO2 45.9 (41-51) mmHg VBG pO2 88.7 H (25-47) mmHg VBG HCO3 27.3 (23-28) mmol/L VBG Total CO2 28.7 (24-29) mmol/L VBG O2 Saturation 97.0 H (60-80) % VBG Base Excess 1.9 (-2 - +2) mmol/L VBG Oxyhemoglobin (94-97) % VBG Carboxyhemoglobin (0-1.5) % VBG Methemoglobin (<0.3-1.5) % Sodium 139 (135-145) mmol/L Potassium 3.8 (3.5-4.5) mmol/L Chloride 101 (101-111) mmol/L Carbon Dioxide 29 (21-32) mmol/L Anion Gap 9.0 (6-13) BUN 8 (6-20) mg/dL Creatinine 0.8 (0.6-1.3) mg/dL Estimated GFR (MDRD) 87 L (>89) Glucose 111 H (74-104) mg/dL Calcium 8.6 (8.5-10.3) mg/dL Phosphorus (2.5-5.0) mg/dL Magnesium (1.7-2.3) mg/dL Total Bilirubin 0.3 (0.2-1.0) mg/dL Direct Bilirubin (0.03-0.18) mg/dL AST 238 H (10-42) IU/L ALT 180 H (10-60) IU/L Alkaline Phosphatase 104 (42-121) IU/L Total Protein 8.2 (6.4-8.9) g/dL Albumin 4.5 (3.2-5.5) g/dL Globulin 3.7 (2.1-4.2) g/dL Albumin/Globulin Ratio 1.2 (1.0-2.2) Nasal Adenovirus (PCR) Nasal B. parapertussis DNA (PCR) Nasal Coronavir 229E PCR Nasal Coronavir HKU1 PCR Nasal Coronavir NL63 PCR Nasal Coronavir OC43 PCR Nasal Enterovir/Rhinovir PCR Nasal Influenza B PCR Nasal Influenza A PCR Nasal Parainfluen 1 PCR Nasal Parainfluen 2 PCR Nasal Parainfluen 3 PCR Nasal Parainfluen 4 PCR Nasal RSV (PCR) Nasal B.pertussis DNA PCR Nasal C.pneumoniae (PCR) [place] Human Metapneumo PCR Nasal M.pneumoniae (PCR) Nasal SARS-CoV-2 (PCR) Urine Opiates Screen NEGATIVE (NEGATIVE) Ur Buprenorphine Scrn NEGATIVE (NEGATIVE) Ur Oxycodone Screen NEGATIVE (NEGATIVE) Urine Methadone Screen NEGATIVE (NEGATIVE) Urine Fentanyl Screen Positive H (NEGATIVE) Ur Barbiturates Screen NEGATIVE (NEGATIVE) Ur Tricyclics Screen NEGATIVE (NEGATIVE) Ur Phencyclidine Scrn NEGATIVE (NEGATIVE) Ur Amphetamine Screen NEGATIVE (NEGATIVE) U Methamphetamines Scrn POSITIVE H (NEGATIVE) U Benzodiazepines Scrn NEGATIVE (NEGATIVE) Urine Cocaine Screen POSITIVE H (NEGATIVE) U Cannabinoids Screen NEGATIVE (NEGATIVE) Ur Drug Screen Comment CUTOFF CONC BELOW: Ethyl Alcohol mg/dL ABX Reporting Has patient been on IV antibiotics over the past 48 hours?: Yes Assessment/Plan Problem List (1) Respiratory failure: Impression: This patient is persistently hypoxic. She was down to 90% with a brief time off oxygen this AM. She does not feel short of breath. She has some mild confusion with the ativan for CIWA elevation, but she is awake and alert. Chest imaging is not revealing. I have reviewed the images myself of both the XR and the CT. There is some very mild atelectasis to my read. I watched her do IS today, she is able to get >2500. Her lungs are CTA today. I am treating her for CAP. Resp PCR is negative. Her methemoglobin is negative. Her carboxy hemoglobin is what is expected for a smoker. I do not see any utility in bronchodilators for this patient. She is moving air on lung auscultation without adventitious breath sounds. She initially denies any hx of childhood lung disease, but then tells me that sometimes her mom would give her nebulizer treatments which lead me to believe that maybe she did have asthma. (2) Accidental fentanyl overdose: Impression: MUDS was positive for cocaine, fentanyl and cocaine. Patient recognizes that she intended to do cocaine. She does not use opiates normally. The other people she was using with yesterday are opiate users thus did not OD. She was surprised that her MUDS was positive for meth. She denies using it. She is also surprised that she still needs to be here. She states that she has overdosed before, and she wakes up in the ED and goes home. (3) Anemia: Impression: Hx iron deficiency, seems to be resolved at this time. Laboratory Tests 11/19/24 08/27/25 08/28/25 04:25 14:58 04:41 Hgb 8.4 L 14.6 13.1 (4) Transaminitis: Impression: She is actively using alcohol. hepatitis panel is pending. Laboratory Tests 08/28/25 04:41 AST 185 H ALT 151 H (5) Alcohol dependence: Impression: Alcohol level after being in the ED for 2 hours yesterday was 120. She drinks daily. She has been getting oral ativan to control her withdrawal here She is not interested in talking to social work for recovery resources. (6) Encounter for screening involving social determinants of health (SDoH): Impression: This patient is not adequately housed. She is staying with friends. There is not the option to discharge her home with oxygen. She is actively smoking cigarettes. She denies the need for recovery resources from social work. (7) Hypomagnesemia: Impression: Will replete with oral magnesium today. Rechk in AM. This patient's diagnosis and treatment plan was discussed this AM with attending physician as a part of multi disciplinary rounding meeting. I have spent 52 minutes in the care of this patient today. This includes time [id number], review and ordering of diagnostic imaging and laboratory studies and consultation with other providers. Monitoring the patient's signs symptoms, evaluation of medication effectiveness and patient's response to treatment.
[2025-08-28] MEDS: MAGNESIUM OXIDE 400 MG TABLET PO SCH (14:42)
[2025-08-29 04:08] LABS: HCV AB Non Reactive (Non Reactive); HEPATITIS B CORE IGM AB Negative (Negative)
[2025-08-29 06:06] LABS: HCT - HEMATOCRIT 41.8 % (37.0-47.0); HGB - HEMOGLOBIN 14.1 g/dL (12.0-16.0); MEAN PLATELET VOLUME 9.0 fL (7.9-10.8); NRBC ABSOLUTE COUNT (AUTO) 0.00 x10^3/uL; NUCLEATED RED BLOOD CELLS AUTO 0.0 /100WBC; PLT - PLATELET COUNT 247 10^3/uL (130-450); RED CELL DISTRIBUTION WIDTH 12.9 % (12.0-15.0)
[2025-08-29 06:24] LABS: BUN - BLOOD UREA NITROGEN 5.0 mg/dL (6-20); CARBON DIOXIDE - CO2 30.0 mmol/L (21-32); CREATININE 0.6 mg/dL (0.6-1.3); GFR - MDRD 121.0 (>89)
--- NOTE | 2025-08-29 12:23 | Discharge Summary ---
Discharge Summary Admit Date: 08/27/25 Discharge Date: 08/29/25 Discharging Provider: Johan Enriquez Primary Care Provider: Lakisha Orr Code Status: Attempt Resuscitation DIAGNOSES Admission Diagnoses: Acute respiratory failure with hypoxemia Accidental fentanyl overdose Anemia Transaminitis Alcohol dependence Hypomagnesemia Discharge Diagnoses with Status of Each Condition: Acute respiratory failure with hypoxiaresolved Accidental fentanyl overdoserecovered Anemiachronic Transaminitissecondary to alcohol dependence Alcohol dependencechronic Hypomagnesemiaresolved HPI History of Present Illness: 25-year-old female who presents to the emergency department via EMS for overdose. She states she was using cocaine with some friends. She was snorting it. And then became unresponsive. She states that she does not use cocaine every day, only on special occasions. Today was a special occasion. She also drinks alcohol every day, last use was today. smokes about 1 cigarette a day and vapes nicotine "a lot".Denies marijuana use. She was administered Narcan by bystanders but had sonorous respirations on EMS arrival with the GCS of 3. She was given IV Narcan through an IO in the right tibia, then became responsive. She states she has been feeling well recently. she has not been sick. She does have a cold sore on her lip. But otherwise is doing fine. No fevers no cough no chest pain. She has a history of alcohol and narcotics addictions. And she is not clean from these today. I am asked to admit her for persistent hypoxia. She is on 2 to 3 L in the ED. I did her turn her down to room air in the emergency department her oxygen saturation went down to 82% and she became cyanotic, although she was mentating relatively normally. Socially she continues to use multiple substances. She does not have a stable living environment at the current time. She is staying with friends. HOSPITAL COURSE Hospital Course: She was admitted into the hospital because of her low oxygen. She underwent CT chest which did not reveal any acute concerns. Aggressive pulmonary hygiene was performed over the following day or 2. Today, she is now on room air and is stable for discharge. She has been instructed to follow-up with PCP and has been encouraged to seek resources for substance abuse ALLERGIES Allergies Allergy/AdvReac Type Severity Reaction Status Date / Time No Known Drug Allergies Allergy Unverified 08/27/25 12:40 MEDICATIONS Ambulatory Orders Medication Instructions Recorded Confirmed Augmentin 875 mg-potassium 1 tab PO BID 2 days #4 tabs 08/29/25 clavulanate 125 mg tablet PHYSICAL EXAM AT DISCHARGE Vital Signs: Vital Signs x48h Temp Pulse Resp BP Pulse Ox O2 Flow Rate 08/29/25 13:46 36.8 C 102 H 18 132/74 H 92 08/29/25 08:19 37.2 C 103 H 24 134/94 H 92 3 Physical Exam Other/Comments: General Appearance: positive No acute distress and Alert Eyes Bilateral: positive Normal inspection and Conjunctivae nml ENT: positive ENT inspection nml Neck: positive Nml inspection Respiratory: positive No respiratory distress, Breath sounds nml and Other (pulls >2500cc on IS); negative Wheezes, Rales or Rhonchi Cardiovascular: positive Regular rate & rhythm Abdomen: positive No distention Back: positive Nml inspection Skin: positive Color nml and Other (R tibial I/O site with some bloody drainage on bandaid. ) Extremities: positive Non-tender and Full ROM; negative Pedal edema Neurologic/Psychiatric: positive Oriented x3 LABS 08/29/25 05:46 08/29/25 05:46 FOLLOW UP Follow Up: With PCP TIME SPENT Time Spent in Discharge (Minutes): 39 Discharge Plan Discharge Patient Disposition: Home, Self Care Condition: Fair Prescriptions: New amoxicillin-pot clavulanate 875-125 mg tablet 1 tab PO BID 2 Days Qty: 4 0RF Diet: Regular Health Concerns: You were admitted into the hospital because you had low oxygen levels after an overdose. We suspect that your cocaine was laced with fentanyl. You responded well to Narcan, but it took a couple days for your oxygen to recover. I am empirically treating you for pneumonia, I have ordered a continued course of Augmentin for you to take starting tomorrow. I believe you would benefit from rehabilitation from alcohol and/or drugs. The closest facility that does this is in [place]. Details below. No restrictions on activity or diet. [facility] [address] [place] [address] Call them at [phone] to arrange an intake appointment. Print Language: Pashto Patient Instructions: Opioid Overdose Naloxone ... Stand Alone Forms: PCP List Follow-up Care: Lakisha Orr ARNP, MSN, [facility] [Primary Care Provider, Family Practice] Vitals documented within 30 minutes of discharge?: Yes
[2025-08-29] MEDS: POTASSIUM CHLORIDE 20 MEQ TABLET PO ONE (12:24)
[2025-08-29 15:05] VITALS: BP 131/89; TEMP 98.2; O2SAT 94
== END 2025-08-29 15:05 | disposition home or self-care (01) | DRG 917 ==
LOC: ED 12:41 → MS3 12:41
PROVIDERS: ADMIT Physician Assistant Medical; ATTEND Physician Assistant Medical
DX: Z56.0 Unemployment, unspecified; D75.89 Other specified diseases of blood and blood-forming organs; Z59.01 Sheltered homelessness; F17.210 Nicotine dependence, cigarettes, uncomplicated; T40.411A Poisoning by fentanyl or fentanyl analogs, accidental (unintentional), initial encounter; B00.1 Herpesviral vesicular dermatitis; J96.01 Acute respiratory failure with hypoxia; F17.290 Nicotine dependence, other tobacco product, uncomplicated; E83.42 Hypomagnesemia; R74.01 Elevation of levels of liver transaminase levels; D50.9 Iron deficiency anemia, unspecified; Z11.52 Encounter for screening for COVID-19; F10.20 Alcohol dependence, uncomplicated